=== PATIENT | female | born 1955 | race Two or more races ===

== ENCOUNTER 2024-10-04 11:22 | Day surgery (SDC) | payer MEDICARE, OTHER, SELFPAY ==
[2024-10-02 14:13] VITALS: BMI 25.3
[2024-10-04] MEDS: LACTATED RINGERS 1000ML 1,000 ML 50 ML IV (11:49)
[2024-10-04 11:53] VITALS: BP 121/80; PULSE 71; RESP 18; TEMP 36.4
[2024-10-04 13:17] VITALS: O2SAT 100
--- NOTE | 2024-10-04 13:17 | EXP.ANES.CKL ---
[facility] Disclaimer: The information contained in this section may have been updated after the patient was seen, as this information can be updated by other users. Medical History Hypothyroid Insomnia Allergies Hypertension Surgical History H/O lumpectomy H/O: hysterectomy H/O dilation and curettage History of tonsillectomy Tubal ligation status Family History Other Colon cancer Heart attack Hypertension Multiple myeloma Social History Smoking Status: Never smoker alcohol intake: never substance use type: denies use current occupational status: retired Travel in the last 8 weeks: None [facility] Anesthesia Checklist Patient Identification Patient Identification: Arm Band Structural Data Admitted From: Home Planned Operative Procedure/s: EGD/Colonoscopy Consent for Planned Operative Procedure(s) Verified: Yes Verified Documents: Surgical Consent and History and Physical NPO Status Verified Time NPO: 00:00 Additional verifications Anesthesia Reactions: No Airway Assessment Mallampati Score:: Class II C-Spine Mobility Assessed: Yes TMJ Mobility Assessed: Yes Dentition: Good Dentition Neurological Assessment Level of Consciousness: Awake, Alert and Appropriate Anesthesia Plan Anesthesia Risk discussed: Yes Anesthesia Plan: Verified ASA Class: II Anesthesia Type: MAC
--- NOTE | 2024-10-04 13:30 | P.HP_ITS ---
History of Present Illness *Admission Date: 10/04/24 *Reason for visit:: Dyspepsia/postprandial discomfort and surveillance/screening *History of present illness: Mrs. Prasad is a 69-year-old female who is here for diagnostic EGD secondary to dyspepsia and surveillance colonoscopy secondary to family history and personal history of colon polyp. The examination is deemed medically necessary for EGD and colonoscopy. The patient has been seen, interviewed and examined prior to the procedure by both myself and the anesthesia provider. [facility] Disclaimer: The information contained in this section may have been updated after the patient was seen, as this information can be updated by other users. Medical History (Updated 10/04/24 @ 13:31 by Tom Reyes II, MD) Hypothyroid Insomnia Allergies Hypertension Surgical History H/O lumpectomy H/O: hysterectomy H/O dilation and curettage History of tonsillectomy Tubal ligation status Family History Other Colon cancer Heart attack Hypertension Multiple myeloma Social History (Updated 10/04/24 @ 13:18 by Renato Thomas CRNA) Smoking Status: Never smoker alcohol intake: never substance use type: denies use current occupational status: retired Travel in the last 8 weeks: None Have you lived/traveled outside US in past 30 days?: No Contact w/someone who lives/traveled outside US past 30 days?: No Exposure to someone with infectious disease in past 14 days?: No Do you have a fever (greater than 100.4 F or 38 C)?: No Have you tested positive for COVID-19: No Exposed to someone with COVID-19 in past 14 days?: No Do you have a sore throat?: No Do you have a cough?: No Do you have any weakness?: No Are you experiencing any nausea/vomitting?: No Do you have any diarrhea?: No Are you experiencing any unusual bleeding?: No Do you have any muscle aches/pain?: No Do you have any abdominal pain?: No Are you experiencing loss of taste or smell?: No Review of Systems Review of Systems Review of systems (narrative): Negative *Cardiovascular Comments: Negative *Gastrointestinal Comments: Negative *Genitourinary Comments: Negative *Musculoskeletal Comments: Negative *Neurologic Comments: Negative Meds Home Medications and Allergies Home Medications ?Medication ?Instructions ?Recorded ?Confirmed ?Type cetirizine 5 mg tablet 5 mg PO DAILY 10/02/24 10/04/24 History levothyroxine 88 mcg tablet 83 mcg PO DAILY 10/02/24 10/04/24 History simvastatin 5 mg tablet 5 mg PO DAILY 10/02/24 10/04/24 History tamoxifen 10 mg tablet 10 mg PO DAILY 10/02/24 10/04/24 History telmisartan 40 mg tablet 40 mg PO DAILY 10/02/24 10/04/24 History trazodone 100 mg tablet 100 mg PO DAILY 10/02/24 10/04/24 History psyllium husk 0.4 gram capsule 0.4 g PO DAILY 10/04/24 10/04/24 History (Metamucil) New Prescriptions to Start Prescriptions: Allergies Allergy/AdvReac Type Severity Reaction Status Date / Time prednisone Allergy Hallucinati Verified 10/04/24 11:50 ng Exam Data for Last 24 hours Vital signs and Labs for Last 24 Hours: Temp Pulse Resp BP O2 Del Method O2 Flow Rate 97.6 F 71 18 121/80 Nasal Cannula 5 10/04/24 11:53 10/04/24 11:53 10/04/24 11:53 10/04/24 11:53 10/04/24 13:17 10/04/24 13:17 I & O for Last 24 hours: Intake & Output 10/01/24 10/02/24 10/03/24 10/04/24 23:59 23:59 23:59 23:59 Weight 157 lb *Routine HEENT Exam Head: Present normocephalic Eye: Present EOMI and PERRL ENT: Present mucous membranes moist *Routine Neck Exam Neck: Present supple *Routine Respiratory Exam Respiratory: Present CTA bilaterally *Routine Cardiovascular Exam Cardiovascular: Present RRR *Routine Abdominal Exam Abdominal: Present soft and normoactive bowel sounds; Absent tenderness *Routine Rectal Exam Rectal:: deferred *Routine Genitalia Exam Genitalia:: deferred *Routine Extremities Exam Extremities: Absent cyanosis, clubbing or edema *Routine Skin Exam Skin: Present warm; Absent rash *Routine Neurological Exam Neurological: Present alert and oriented X3 Assessment and Plan *Assessment and plan (1) Epigastric discomfort: Status: Acute Category: Medical Code(s): R10.13 - Epigastric pain (2) Dyspepsia: Status: Acute Category: Medical Code(s): R10.13 - Epigastric pain (3) Bloating: Status: Acute Category: Medical Code(s): R14.0 - Abdominal distension (gaseous) (4) Personal history of colon polyps, unspecified: Status: Acute Category: Medical Code(s): Z86.0100 - Personal history of colon polyps, unspecified (5) Family history of colon cancer in mother: Status: Acute Category: Medical Code(s): Z80.0 - Family history of malignant neoplasm of digestive organs Plan A/P: 1. Dyspepsia/bloating for upper endoscopy and family history of colon cancer and prior colon polyp for colonoscopy is the preprocedural diagnosis. The patient will be anesthetized/sedated using MAC sedation. The patient has been seen and examined. Cardiac and lung assessment prior to the examination is stable. Proceed with planned EGD and colonoscopy
--- NOTE | 2024-10-04 13:37 | HMH.PROCNOTE ---
[facility] Procedure Note Date: 10/04/24 Time: 13:37 Procedure Note:: Upper Endoscopy Procedure Report: Esophagogastroduodenoscopy with cold biopsies and TTS balloon dilation Endoscopost: Tom Reyes II, MD Referring Physician: STEVEN Becker Date of Procedure: October 04, 2024 Equipment: Olympus GIF 190 standard upper endoscope Sedation: MAC sedation Indications: Mrs. Prasad is a 69-year-old female who has been having some postprandial abdominal discomfort in the epigastrium 30 minutes after meals and then in the lower abdomen 2 hours after meals. She also was having bloating and gassiness. Much of this has improved. She does have some constipation that also has improved. She did try Linzess which resulted in marked diarrhea. She reports no belching, heartburn or dysphagia. She does get some early satiety without nausea. Procedure: Prior to the procedure, a history and physical exam was performed, and patient's medications and allergies were reviewed. The risks, benefits and alternatives of the sedation and procedure were discussed with the patient. All questions were answered and informed consent was obtained. The patient was brought to the procedure room. Patient identification and proposed procedure were verified by the physician and the nurse. The patient was placed in a left lateral decubitus position and the scope was passed under direct vision. Throughout the procedure, the patient's blood pressure, pulse, and oxygen saturations were monitored continuously. The upper GI endoscopy was accomplished without difficulty. The patient tolerated the procedure well. Findings: The scope was passed directly into the upper esophagus and advanced to the third portion of the duodenum. The post bulbar duodenum and duodenal bulb were normal with normal mucosa and conniventes. The scope was withdrawn through a normal duodenal bulb and pylorus into the stomach. There was some mild linear reactive gastropathy of the antrum. The body and fundus of the stomach were normal. Upon retroflexion there was a very small sliding 1 to 2 cm hiatal hernia. Biopsies were taken from the antrum. The scope was then withdrawn into the esophagus. There was a distal esophageal Schatzki's ring. This was gently dilated to 20 mm with shattering of the Schatzki's ring. There was no evidence of reflux esophagitis or Spring's. The remainder of the esophageal mucosa was normal. Impression: 1. Schatzki's ring with very small 1 to 2 cm sliding hiatal hernia status post dilation to 20 mm 2. Mild linear reactive gastropathy of antrum Plan: I will follow-up the biopsies. 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 Most of her symptoms of dyspepsia are/were related to and driven by lower intestinal gas pressure gradients/high gas pressure buildup resulting in backflow of bile and peptic fluid from the duodenum into the stomach (duodenal reflux). This gas production (carbon dioxide, hydrogen, methane, etc.) from the lower intestinal tract is the byproduct of colonic bacterial fermentation. This colonic fermentation occurs when there is more carbohydrate (dietary starches, sugars and high residue plant fiber) substrate that does not get digested (in the middle or small intestine) or occurs when there is colonic fecal buildup and colonic bacterial overgrowth. This indeed leads to bloating and the gas pressure buildup with gas pressure gradients that do drive backflow and dyspepsia.
--- NOTE | 2024-10-04 13:40 | HMH.PROCNOTE ---
[facility] Procedure Note Date: 10/04/24 Time: 13:53 Procedure Note:: Colonoscopy Procedure Report: Colonoscopy with cold snare polypectomy and monopolar ablation/coagulation of internal hemorrhoids Endoscopist: Tom Reyes II, MD Referring physician: STEVEN Becker Date of Procedure: October 04, 2024 Equipment: Olympus 190 variable stiffness pediatric colonoscope Sedation: MAC sedation Indication: Mrs. Prasad is a 69-year-old female who is here for follow-up surveillance colonoscopy. The patient did have a colonoscopy in August 2020 and had a single polyp removed. Her mother had colon cancer in her 60s. The patient reports no weight loss. She does have intermittent hemorrhoidal bleeding that can occur every 3 or 4 weeks with some hemorrhoid prolapse. Her constipation symptoms have resolved. Procedure: Prior to the procedure, a history and physical exam was performed, and patient's medications and allergies were reviewed. The risks, benefits and alternatives of the sedation and procedure were discussed with the patient. All questions were answered and informed consent was obtained. The patient was brought to the procedure room. Patient identification and proposed procedure were verified by the physician and the nurse. The patient was placed in a left lateral decubitus position and the scope was passed under direct vision. Throughout the procedure, the patient's blood pressure, pulse, and oxygen saturations were monitored continuously. The colonoscopy was accomplished without difficulty. The patient tolerated the procedure well. Findings: On digital rectal examination there was normal rectal tone. There were no external hemorrhoids. The colonoscope was introduced through the anal canal to the rectum and advanced to the cecum. The ileocecal valve and appendiceal orifice were identified. The scope was advanced a short distance into the ileum which appeared grossly normal. The scope was then withdrawn into the colon. There were 2 diminutive 3 to 4 mm colon polyps (transverse x 1 (4 mm) and sigmoid x 1 (3 mm)). These were both removed via cold snare polypectomy. The remaining cecum, ascending and transverse colon and mucosa were grossly normal. There were scattered diverticuli throughout the descending and sigmoid colon (LEFT colon). The rectum itself was normal. Upon retroflexion within the rectum there were grade 2?3 internal hemorrhoids with some prolapse. The venous columns of hemorrhoids were ablated using monopolar ablation/coagulation to destruction. The preparation was excellent throughout with [place] Preparation Score of 9. The cecal time was 12 minutes. Impression: 1. Diminutive colonic polyps x 2 2. Left-sided diverticulosis 3. Grade 2-3 internal hemorrhoids status post monopolar ablation/coagulation Plan: I will follow-up the polyp histology and recommend repeat surveillance colonoscopy again in 5 to 10 years based upon the pathology. I would encourage a fiber bowel regimen on a long-term daily maintenance basis.
[2024-10-04 13:57] VITALS: BP 109/68; PULSE 60; RESP 16; TEMP 36.1; O2SAT 95
[2024-10-04 14:07] VITALS: BP 97/61; PULSE 56; RESP 16; O2SAT 95
[2024-10-04 14:17] VITALS: BP 133/69; PULSE 65; RESP 16; O2SAT 97
[2024-10-04 14:27] VITALS: BP 119/69; PULSE 66; RESP 16; O2SAT 98
== END 2024-10-04 14:29 | disposition home or self-care (01) ==
PROVIDERS: PCP Nurse Practitioner Family; Visit Provider Internal Medicine Gastroenterology
PROC: 0DJ08ZZ Inspection of Upper Intestinal Tract, Via Natural or Artificial Opening Endoscopic (ICD-10-PCS; CPT 45378; principal; 2024-10-04 13:00)
DX: R10.13 Epigastric pain (principal); R14.0 Abdominal distension (gaseous); Z86.0100 Personal history of colon polyps, unspecified; Z80.0 Family history of malignant neoplasm of digestive organs; Z12.11 Encounter for screening for malignant neoplasm of colon; K31.9 Disease of stomach and duodenum, unspecified; K44.9 Diaphragmatic hernia without obstruction or gangrene; K22.2 Esophageal obstruction; K63.5 Polyp of colon; K57.30 Diverticulosis of large intestine without perforation or abscess without bleeding; K64.8 Other hemorrhoids
CPT/HCPCS: 43239; 43249; 45385; 45388; C1726; J7120

== ENCOUNTER 2025-09-04 08:09 | Outpatient (CLI) | payer MEDICARE, OTHER, SELFPAY ==
--- OUTSIDE RECORDS SUMMARY | 2025-07-11 10:30 | XMS_ITS | Encounter Summary ---
Author Organization [facility] ystem Address [address] [place] [address] Care Team Providers Care Advertising Agent Name Role Phone Hamm, Tomeka LARRY Primary Care Provider [phone] Reason for Visit * Reason Comments Follow-up Annual - 4 years out -Right Breast Cancer Encounter Details Date Type Department Care Team (Late st Contact Info) Description 07/11/2025 10:30 AM EST Office Visit [facility] GENERAL SURGERY [address] [facility] [address] [place] [id number] Zack Kong MD [address] [facility] [address] [place] [address] Ductal carcinoma in situ (DCIS) of right breast (Primary Dx) Social History Tobacco Use Types Packs/Day Years Used Date Smoking Tobacco: Never Smokeless Tobacco: Never Alcohol Use Standard Drinks/Week Comments Not Currently 0 (1 standard drink = 0.6 oz pur e alcohol) PHQ-2 Answer Date Recorded Retired PHQ-9: Brief Depression Severity Measure Score 0 11/12/2022 PHQ-2 Answer Date Recorded Patient Health Questionnaire-2 Score 0 11/20/2024 Comments No Sex and Gender Information Value Date Recorded Sex Assigned at Female 11/19/2024 1:41 PM EDT Legal Sex Female 10:29 AM EDT Gender Identity Not on file Sexual Orientation Not on file documented as of this encounter Last Filed Vital Signs Vital Sign Reading Time Taken Comments Blood Pressure 122/80 07/11/2025 11:10 AM EST Pulse 73 07/11/2025 11:10 AM EST Temperature - - Respiratory Rate - - Oxygen Saturation 96% 07/11/2025 11:10 AM EST Inhaled Oxygen Concentration - - Weight 73.5 kg (162 lb) 07/11/2025 11:10 AM EST Height 160 cm (5' 3 ) 07/11/2025 11:10 AM EST Body Mass Index 28.7 07/11/2025 11:10 AM EST documented in this encounter Progress Notes * Zack Kong MD - 07/11/2025 10:30 AM ESTAssociated Problem(s): Ductal carcinoma in situ (DCIS) of right breast Cancer Staging Stage 0 (pTis (DCIS), pN0, cM0, G3, ER+, PA+, HER2: Not Assessed) Status post right lumpectomy on 03/23/2021 No residual DCIS Completed radiation in 04/[address] Quiros Recent screening mammogram with BI-RADS Category 1 Continue with routine mammograms Follow-up with Dr. Quiros Breast MRI in 1 year * Zack Kong MD - 07/11/2025 10:30 AM EST Name: Charmaine Prasad Date: 07/11/25 Referring provider: No ref. provider found Subjective: Charmaine Prasad is a 70 y.o. female referred for evaluation of diagnosed carcinoma of the right breast. Patient presented with a focus of calcification at 9 o'clock position with grade 3 DCIS., ER and PRpositive Status post right lumpectomy on 03/23/2021 Final pathology showed no residual DCIS Negative genetic test Completed radiation in 04/[address] Quiros Bilateral screening mammogram on 06/25/2025 with BI-RADS Category 1 The following portions of the patient's history were reviewed and updated as appropriate: allergies, current medications, past family history, past medical history, past social history, past surgicalhistory, and problem list. Review of Systems Pertinent items are noted in HPI. Objective: Vitals: 07/11/25 1110 BP: 122/80 Pulse: 73 SpO2: 96% Body mass index is 28.7 kg/m??. Physical Exam Physical Exam Lungs: clear to auscultation bilaterally Heart: regular rate and rhythm, S1, S2 normal, no murmur, click, rub or gallop Breasts: normal appearance, no masses Right lumpectomy incision has healed well No bilateral adenopathy Assessment/Plan: Assessment & Plan Ductal carcinoma in situ (DCIS) of right breast Cancer Staging Stage 0 (pTis (DCIS), pN0, cM0, G3, ER+, PA+, HER2: Not Assessed) Status post right lumpectomy on 03/23/2021 No residual DCIS Completed radiation in 04/[address] Quiros Recent screening mammogram with BI-RADS Category 1 Continue with routine mammograms Follow-up with Dr. Quiros Breast MRI in 1 year Return in about 1 year (around 07/11/2026). Zack Kong MD documented in this encounter Plan of Treatment Upcoming Encounters Date Type Department Care Team (Late st Contact Info) Description 11/20/2025 11:00 AM EDT Office Visit [facility] & [facility]Y [address] [facility] [address] [place] [phone] Urszula Quiros MD [address] [facility] [address] [place] [address] 07/10/2026 10:30 AM EST Office Visit [facility]ERY [address] [facility] [address] [place] [phone] Zack Kong MD [address] [facility] [address] [place] [address] documented as of this encounter Visit Diagnoses Diagnosis Ductal carcinoma in situ (DCIS) of right breast- Primary documented in this encounter Care Teams Advertising Agent Relationship Specialty Start Date End Date Tomeka Hamm APRN NPI: [id number] [place] [address] PCP - General Nurse Practitioner 06/05/24 documented as of this encounter
--- OUTSIDE RECORDS SUMMARY | 2025-09-04 08:12 | XMS_ITS | Clinical Summary ---
Author Organization [facility] yste Address [address] [place] [address] Care Team Providers Care Bath Design Sales Consultant Name Role Phone Tomeka Hamm APRN Primary Care Provider [phone] Allergies No known active allergies Medications Synthroid 75 MCG tablet 1 tablet Daily. 02/17/2021 Active rosuvastatin (CRESTOR) 5 MG tablet 1 tablet Daily. 02/17/2021 Active telmisartan (MICARDIS) 40 MG tablet 1 tablet Daily. 02/17/2021 Active hydrOXYzine (ATARAX) 25 MG tablet every night at bedtime. 11/13/2021 Active traZODone (DESYREL) 100 MG tablet 1 tablet Every Night. 10/29/2022 Active levothyroxine (SYNTHROID, LEVOTHROID) 88 MCG tablet Take 1 tablet by mouth Every Morning. 10/05/2024 Active tamoxifen (NOLVADEX) 20 MG chemo tablet Take 1 tablet by mouth Daily. 90 tablet 3 11/20/2024 Active Hospital, Clinic, or Other Facility Administered Medication Ordered Dose Route Frequency Start Date End Date Status lidocaine (XYLOCAINE) 1 % injection 5 mL 5 mL INFILTRATION Once 03/23/2021 Acti ve Active Problems Problem Noted Date Diagnosed Date Ductal carcinoma in situ (DCIS) of right breast 04/01/2021 Cancer Staging:Pathologic:Stage 0(pTis (DCIS), pN0, cM0, G3, ER+, [place]+, HER2: Not Assessed) - Signed by Urszula Quiros MD on 04/01/2021 Assessment & Plan (07/11/2025 11:25 AM EST): Cancer Staging Stage 0 (pTis (DCIS), pN0, cM0, G3, ER+, [place]+, HER2: Not Assessed) Status post right lumpectomy on 03/23/2021 No residual DCIS Completed radiation in 04/[address] Quiros Recent screening mammogram with BI-RADS Category 1 Continue with routine mammograms Follow-up with Dr. Quiros Breast MRI in 1 year Encounters Date Type Department Care Team Description 07/11/2025 10:30 AM EST Office Visit [facility] GENERAL SURGERY [address] [facility] [address] [place] [phone] Zack Kong MD Ductal carcinoma in situ (DCIS) of right breast (Primary Dx) 07/11/2025 Travel 06/24/2025 1:29 PM EDT - 06/24/2025 11:59 PM EDT Hospital Encounter [facility] [address] [place] [phone] Jojo Araya, JOB HONER Encounter for screening mammogram for malignant neoplasm of breast; Ductal carcinoma in situ (DCIS) of right breast Discharge Disposition: Home or Self Care 06/24/2025 Travel from Last 3 Months Immunizations Immunization Administration Dates Next Due COVID-19 (MODERNA) 1st,2nd,3rd Dose Monovalent 0 11/27/2020,10/30/2020 FLUAD TRI 65YR+ 06/10/2020 Flu Vaccine Split Quad 06/23/2017 Fluzone >6mos 05/30/2019,06/24/2016 Fluzone (or Fluarix & Flulaval for VFC) >6mos Family History Medical History Relation Name Comments Heart disease Father Carlin Ojeda Hypertension Father Carlin Ojeda Breast cancer Maternal Aunt 1 DX AGE 20'S -70'S Breast cancer Maternal Aunt 2 DX AGE 20'S -70'S Breast cancer Maternal Aunt 3 DX AGE 20'S - 70'S Heart attack Mother La Ojeda Hypertension Mother [place] O[place]eda BRCA 1/2 Neg Hx Ovarian cancer Neg Hx Relation Name Status Comments Father Carlin Ojeda Maternal Aunt 1 Maternal Aunt 2 Maternal Aunt 3 Maternal Aunt 4 Mother La Ojeda Social History Tobacco Use Types Packs/Day Years Used Date Smoking Tobacco: Never Smokeless Tobacco: Never Tobacco Cessation:Counseling Given: Not Answered Alcohol Use Standard Drinks/Week Comments Not Currently [...] on file Sexual Orientation Not on file Last Filed Vital Signs Vital Sign Reading Time Taken Comments Blood Pressure 122/80 07/11/2025 11:10 AM EST Pulse 73 07/11/2025 11:10 AM EST Temperature 36.4 C (97.6 F) 11/20/2024 10:55 AM EDT Respiratory Rate 16 11/20/2024 10:55 AM EDT Oxygen Saturation 96% 07/11/2025 11:10 AM EST Inhaled Oxygen Concentration - - Weight 73.5 kg (162 lb) 07/11/2025 11:10 AM EST Height 160 cm (5' 3 ) 07/11/2025 11:10 AM EST Body Mass Index 28.7 07/11/2025 11:10 AM EST Plan of Treatment Upcoming Encounters Date Type Department Care Team (Late st Contact Info) Description 11/20/2025 11:00 AM EDT Office Visit [facility] HEMATOLOGY & ONCOLOGY [address] [facility] [address] [place] [phone] Urszula Quiros MD [address] [facility] [address] [place] [phone] 07/10/2026 10:30 AM EST Office Visit [facility] GENERAL SURGERY [address] [facility] [address] [place] [phone] Zack Kong MD [address] [facility] [address] [place] [phone] Health Maintenance Due Date Last Done Comments COLOGUARD 2002 COLON CANCER SCREENING 5 YEA R SIGMOIDOSCOPY 2002 COLONOSCOPY 2002 COLORECTAL CANCER SCREENING 2002 CT COLONOGRAPHY 2002 FECAL OCCULT BLOOD TEST 2002 FIT Testing (1 year) 2002 ANNUAL WELLNESS VISIT 08/17/2020 HEPATITIS C SCREENING 08/17/2020 COVID-19 Vaccine (3 - Modern a risk series) 12/25/2020 11/27/2020, 10/30/2020 ZOSTER VACCINE (2 of 2) 07/11/2022 05/16/2022 LIPID PANEL 06/22/2024 06/22/2023, 12/04, 12/20/2022, Additional history exists DXA SCAN 12/20/2024 12/20/2022, 12/20/2022 INFLUENZA VACCINE 04/05/2025 06/29/2024, , 06/09/2021, Additional history exists Pneumococcal Vaccine 50+ (2 of 2 - PCV) 06/29/2025 06/29/2024 MAMMOGRAM 06/25/2027 06/25/2025, 06/06, 06/20/2024, Additional history exists TDAP/TD VACCINES (2 - Td or Tdap) 06/22/2033 023 Procedures Procedure Name Priority Date/Time Associated Diagnosis Comments MAMMO SCREENING DIGITAL TOMOSYNTHESIS BILATERAL W CAD Routine 06/24/2025 1:54 PM EDT Encounter for screening mammogram for malignant neoplasm of breast Ductal carcinoma in situ (DCIS) of right breast AMBRY GENETIC ASSESSMENT Routine 06/23/2025 1:29 PM EDT SCANNED - DEXA 12/20/2022 from Last 3 Months or Most Recently Relevant to Health Maintenance Results * Mammo Screening Digital Tomosynthesis Bilateral With CAD (06/24/2025 1:54 PM EDT) Anatomical Region Laterality Modality Breast N/A Mammography 06/25/2025 5:42 PM EDT Impressions 06/25/2025 5:44 PM EDT No findings suspicious for malignancy. ACR BI-RADS CATEGORY: 1, NEGATIVE RECOMMENDATION: Yearly mammogram, yearly clinical breast exam, and encourage self breast awareness. CAD was used. The standard false negative rate of mammography is between 10% and 25%. Complex patterns or increased breast density will markedly elevate the false negative rate of mammography. A letter, in lay terminology, with the results of this exam will be mailed to the patient. If there is a palpable area of concern, biopsy should be considered regardless of imaging findings. 06/25/2025 5:44 PM by Marianne Tomas MD on Narrative 06/25/2025 5:44 PM EDT ROUTINE DIGITAL SCREENING MAMMOGRAM WITH TOMOSYNTHESIS HISTORY: Routine screening. IMAGE COMPARISON: Extending to 2020. TECHNIQUE: Low dose full field digital breast tomosynthesis imaging was performed with 2D and 3D acquisitions consisting of bilateral CC and MLO views. FINDINGS: There are scattered areas of fibroglandular density. The fibroglandular pattern appears stable. There is no mass, worrisome microcalcifications, or architectural distortion to suggest development of malignancy. us Jojo Araya APRN IMG MAMMOGRAPHY ORDERABLES Final Result * [employer] GENETIC RISK ASSESSMENT QUESTIONNAIRE - , (06/23/2025 1:29 PM EDT) NCCN NCCN not met [facility] Comment:High Risk Cancer Ris k Assessment 06/23/2025 1:29 PM EDT us Jojo Araya APRN GENETIC TESTING Final Resu lt [email or web address]
[address] [place] [address], * SCANNED - DEXA (12/20/2022) Anatomical Region Laterality Modality Other us Jojo Araya APRN CHART REVIEW TABS Final Result from Last 3 Months or Most Recently Relevant to Health Maintenance Insurance MEDICARE A & B [employer] Member Subscriber Plan / Payer ( fective 2022-Present) Name:Charmaine Prasad Relation to Subscriber:Self Name:Charmaine Prasad Payer ID:[id number] (NA) Type:Not on file Address: [address] [place] [phone] Care Teams Bath Design Sales Consultant Relationship Specialty Start Date End Date Tomeka Hamm APRN [address] [place] [address] PCP - General Nurse Practitioner 06/05/24
--- OUTSIDE RECORDS SUMMARY | 2025-09-04 08:12 | XMS_ITS | Encounter Summary ---
Author Organization [facility] yste Address [address] [place] [address] Care Team Providers Care Thread Singer Name Role Phone Tmoeka Hamm LARRY Primary Care Provider [phone] Encounter Details Date Type Department Care Team (Latest Contact Info) Description 07/11/2025 Travel Social History Tobacco Use Types Packs/Day Years [...] on file documented as of this encounter Plan of Treatment Upcoming Encounters Date Type Department Care Team (Late st Contact Info) Description 11/20/2025 11:00 AM EDT Office Visit [facility] HEMATOLOGY & ONCOLOGY [address] [facility] [address] [place] [phone] Urszula Quiros MD [address] [facility] [address] [place] [address] 07/10/2026 10:30 AM EST Office Visit [facility] GENERAL SURGERY [address] [facility] [address] [place] [phone] Zack Kong MD [address] [facility] [address] [place] [address] documented as of this encounter Visit Diagnoses Not on filedocumented in this encounter Care Teams Thread Singer Relationship Specialty Start Date End Date Tomeka Hamm APRN [address] [place] [phone] PCP - General Nurse Practitioner 06/05/24 documented as of this encounter
--- OUTSIDE RECORDS SUMMARY | 2025-09-04 08:12 | XMS_ITS | Encounter Summary ---
Author Organization [facility] yste Address [address] [place] [address] Care Team Providers Care Structural Steel Fitter Name Role Phone Tomeka Hamm LARRY Primary Care Provider [phone] Encounter Details Date Type Department Care Team (Late st Contact Info) Description 03/26/2021 Telephone [facility] [address] [place] [phone] Evy Martinez RegSched Rep Social History Tobacco Use Types Packs/Day Years Used Date Smoking Tobacco: Never Assessed Comments No Sex and Gender Information Value Date Recorded Sex Assigned at Female 11/19/2024 1:41 PM EDT Legal Sex Female 10:29 AM EDT Gender Identity Not on file Sexual Orientation Not on file documented as of this encounter Plan of Treatment Upcoming Encounters Date Type Department Care Team (Late st Contact Info) Description 11/20/2025 11:00 AM EDT Office Visit [facility] HEMATOLOGY & ONCOLOGY [address] [facility] [address] [place] [phone] Urszula Quiros MD [address] [facility] [address] [place] [phone] 07/10/2026 10:30 AM EST Office Visit [facility] GENERAL SURGERY [address] [facility] [address] [place] [address] Zack Kong MD [address] [facility] [address] [place], [place] [phone] documented as of this encounter Visit Diagnoses Not on filedocumented in this encounter Care Teams Structural Steel Fitter Relationship Specialty Start Date End Date Tomeka Hamm APRN [address] [place] [id number] PCP - General Nurse Practitioner 06/05/24 documented as of this encounter
--- OUTSIDE RECORDS SUMMARY | 2025-09-04 08:12 | XMS_ITS | Continuity of Care Document ---
Author Organization [id number] [address] [facility] Address [address] [place] [address] Assessment Encounter Date Assessment Date Assessment LastModified by Organization Details LastModified Time 08/14/2025 08/14/2025 Charmaine Prasad presented with 15-month history of epigastric and lower abdominal pain, irregular bowel movements, and 4-week history of bilateral arm tingling. Her medical history included IBS with constipation, functional dyspepsia, Schatzki's ring with small hiatal hernia, diverticulitis, and cervical spine issues. Previous EGD and colonoscopy revealed reactive gastritis and benign polyps. Treatment included pantoprazole 40mg daily, CT abdomen with contrast, Flexeril 5mg at bedtime, and Tylenol arthritis for pain. Follow-up scheduled in [address] completion. Not available 08/14/2025 16:29:15 Plan of Treatment Reminders Order Date Submit Date Provider Last Modified By Organization Details Last Modified Time Details Appointments FOLLOW UP 15 2025 10:30A James Hamm APRN Not available Not available Not available *ANNUAL EXAM 2025 11:00A James Hamm APRN Not available Not available Not available Lab renal function panel, serum 2024 025 [place] [facility], [facility], [place], [address], 09/03/2025 04:13:29 Referral None recorded. Procedures None recorded. Surgeries None recorded. Imaging CT, abdomen, w/wo contrast [address] (Scheduling), [address], [place], [address], 08/21/2025 09:14:40 Medication Orders cyclobenz aprine 5 mg tablet 2024 025 [facility], [address] [place] [address], [address], 08/14/2025 14:54:52 pantopraz ole 40 mg tablet,de layed release 2024 025 [facility], [address] [place] [address], [address], 08/14/2025 14:39:46 Patient TargetsNo targets recorded. Patient InstructionsNo instructions recorded. Reason for Referral None Reported. Problems Name Problem SNOMED Code Status Onset Date Resolution Date Notes Provider Name and Address Organization Details Recorded Time Lumpectom y of breast Completed 06/22/2023 ABIMAEL CURIEL [address], [address], [employer] 3 10:10:04 Hypertens aubree disorder 15182059 Active 2022 ABIMAEL CURIEL [address], [address], [employer] 3 10:09:30 Mixed hyperlipi demia 156703245 Active 2022 ABIMAEL CURIEL [address], [address], [employer] 3 10:09:44 Hypothyro idism 67105354 Active 2022 ABIMAEL CURIEL [address], [address], [employer] 10:09:38 Insomnia 322873596 Active 2022 ABIMAEL CURIEL [address], [address], [employer] 3 10:09:40 Muscle spasm of cervical muscle of neck 948812086304 Active 2024 Tomeka Hamm APRN [address] [place] [address], [address] [place] [address] 8, [employer] 14:20:25 Body mass index 25-29 - overweigh t 403851835 Active 2024 Tomeka Hamm APRN [address] [place] [address], [address] [place] [address] 8, [employer] 15:47:27 Lower esophagea l ring 907440386 Active 2024 Tomeka Hamm APRN [address] [place] [address], [address] [place] [address] 8, [employer] 5 13:57:02 Irritable bowel syndrome character ized by constipat ion 561130850 Active 2024 Tomeka Hamm APRN [address] [place] [address], [address] [place] [address] 8, [employer] 5 13:57:12 Nonulcer dyspepsia 7111520 Active 2024 Tomeka Hamm APRN [address] [place] [address], [address] [place] [address] 8, [employer] 13:57:28 Hiatal hernia 74482518 Active 2024 Tomeka Hamm APRN [address] [place] [address], [address] [place] [address] 8, [employer] 13:59:17 Problem Notes None recorded. Procedures Surgical History Date Name Laterality Status Provider Name and Address Organization Details Recorded Time 06/20/20 Most Recent Mammogram completed Vandana Frias [employer] 10/01/2024 10:38:14 Breast Biopsy completed [employer] 06/22/2023 09:17:14 Hysterectomy completed [employer] 06/22/2023 09:12:23 Tonsillectomy completed [employer] 06/22/2023 09:12:23 Tubal Ligation completed ERNESTO [employer]. 06/22/2023 09:12:23 Dilation and Curettage completed ERNESTO [employer]. 06/22/2023 09:12:23 lumpectomy of right breast completed ERNESTO [employer]. 06/22/2023 09:17:26 lithotripsy completed ERNESTO [employer]. 06/22/2023 09:17:45 Imaging Results None recorded. Procedure Notes None recorded. Medical Equipment None Reported. Allergies No known drug allergies Medications Name Sig Start Date Stop Date Status Note LastModified by Organization Details LastModified Time amoxicillin 500 mg capsule TAKE 1 CAPSULE BY MOUTH THREE TIMES DAILY 06/22 completed Not Available Not Available Not Available Augmentin 875 mg-125 mg tablet Take 1 tablet every 12 hours by oral route with meal(s) for 10 days. 09/21 completed Not Available Not Available Not Available ketoconazol e 2 % shampoo WASH SCALP 2 TO 3 TIMES EVERY WEEK. LET SIT 5 MINUTES BEFORE RINSING THEN FOLLOW WITH REGULAR SHAMPOO 05/22 completed Not Available Not Available Not Available clobetasol 0.05 % topical cream APPLY EXTERNALL Y TO THE AFFECTED AREA 2 TO 3 TIMES PER WEEK 05/22 completed Not Available Not Available Not Available Zyrtec 10 mg tablet Take 1 tablet every day by oral route. 05/22 completed Not Available Not Available Not Available levothyroxi ne 88 mcg tablet TAKE ONE TABLET BY MOUTH EVERY MORNING active Not Available Not Available No t Available ceftriaxone 1 gram solution for injection Take 1 g by injection route. 05/22 completed Not Available Not Available Not Available magnesium oxide 400 mg (241.3 mg magnesium) tablet TAKE 1 TABLET BY MOUTH EVERY DAY active Not Available Not Available No t Available trazodone 100 mg tablet TAKE 1 TABLET AT BEDTIME 2024 active Not Available Not Available Not Avai lable doxycycline monohydrate 100 mg capsule TAKE ONE CAPSULE BY MOUTH TWICE DAILY WITH A MEAL FOR 7 DAYS FOR ear infection 09/28 completed Not Available Not Available Not Available triamcinolo ne acetonide 40 mg/mL suspension for injection Take 1 mL by injection route. 05/22 completed Not Available Not Available Not Available pantoprazol e 40 mg tablet,nga yed release TAKE 1 TABLET BY MOUTH EVERY DAY active Not Available Not Available No t Available telmisartan 40 mg tablet TAKE 1 TABLET BY MOUTH EVERY DAY as directed active Not Available Not Available No t Available Synthroid 75 mcg tablet Take 1 tablet every day by oral route. 07/09 completed Not Available Not Available Not Available hydroxyzine HCl 25 mg tablet Take 2 tablets every day by oral route at bedtime. 05/22 completed Not Available Not Available Not Available fluocinonid e 0.05 % topical solution WHEN FLARED APPLY TO SCALP AT BEDTIME FOR UP TO 2 WEEKS. STOP FOR 1 WEEK THEN REPEAT NEEDED FOR FLARES 05/22 completed Not Available Not Available Not Available fluticasone propionate 50 mcg/actuati on nasal spray,suspe nsion SPRAY ONCE in EACH NOSTRIL DAILY 05/22 completed Not Available Not Available Not Available tamoxifen 20 mg tablet TAKE 1 TABLET DAILY active Not Available Not Available No t Available cyclobenzap rine 5 mg tablet TAKE 1 TABLET BY MOUTH NEEDED AT BEDTIME FOR muscle pain 2024 active Not Available Not Available Not Avai lable rosuvastati n 5 mg tablet TAKE 1 TABLET BY MOUTH EVERY DAY as directed active Not Available Not Available No t Available sodium,pota ssium,mag sulfates 17.5 gram-3.13 gram-1.6 gram oral soln 05/22 completed Not Available Not Available Not Available Linzess 145 mcg capsule TAKE ONE CAPSULE BY MOUTH EVERY MORNING FOR CONSTIPAT ION 05/22 completed Not Available Not Available Not Available Vitals Date Recorded Body height Body mass index (BMI) Body weight Body temperature Heart rate Oxygen saturation Systolic And Diastolic Provider Name and Address Organization Details Last Updated DateTime 160.02 cm 29.1 kg/m2 60408.8 7 g 98.5 [degF] 98 /min 95 % 115/72 mm[Hg] [facility]UL[facility] [place] [employer] [address] 13:52:51 Social History Question Answer Notes LastModified by Organizat ion Details LastModified Time Tobacco Smoking Status Never Smoker ERNESTO mireles, [facility] [employer] 06/22/2023 09:16:35 Do You Have An Advance Directive? No [email or web address] Information not available 06/22/2023 Is Your Home Air Conditioned? Yes Information not available 06/22/2023 Do You Wear A Helmet When Biking? No Information not available 06/22/2023 Are You Blind Or Do You Have Difficulty Seeing? No [email or web address] Information not available 06/22/2023 What Is Your Level Of Caffeine Consumption? Moderate Information not available 06/22/2023 Have You Been To An Area Known To Be High Risk For COVID-19? No [email or web address] Information not available 06/22/2023 Are You Deaf Or Do You Have Serious Difficulty Hearing? No Information not available 06/22/2023 What Type Of Diet Are You Following? REGULAR [email or web address] Information not available 06/22/2023 How Many Days Of Moderate To Strenuous Exercise, Like A Brisk Walk, Did You Do In The Last 7 Days? 0 [email or web address] Information not available 06/22/2023 Have There Been Any Changes To Your Family Or Social Situation? Yes [email or web address] Information no t available 06/22/2023 Are There Any Guns Present In Your Home? No [email or web address] Information not available 06/22/2023 Which Of Your Hands Is Dominant? Right [email or web address] Information not available 06/22/2023 Do You Have A Medical Power Of Tapper Hand? Yes [email or web address] Information not available 06/22/2023 What Was The Date Of Your Most Recent Tobacco Screening? 08/14/2025 [email or web address] Information not available 08/14/2025 Do You Have Any Pets? No [email or web address] Information not available 06/22/2023 What Is Your Relationship Status? [email or web address] Information not available 06/22/2023 Have You Repeated Any Grades? No [email or web address] Information not available 06/22/2023 Do You Use Your Seat Belt Or Car Seat Routinely? Yes [email or web address] Information not available 06/22/2023 Are You Sexually Active? Yes [email or web address] Information not available 06/22/2023 Do You Have Any Siblings? 5 [email or web address] Information not available 06/22/2023 Do You Have Smoke And Carbon Monoxide Detectors In Your Home? Yes [email or web address] Information not available 06/22/2023 Are You Passively Exposed To Smoke? No [email or web address] Information no t available 06/22/2023 Are There Any Smokers In Your House? No [email or web address] Information not available 06/22/2023 What Types Of Sporting Activities Do You Participate In? Walking [email or web address] Information not available 06/22/2023 Do You Use Sunscreen Routinely? No [email or web address] Information not available 06/22/2023 Has Tobacco Cessation Counseling Been Provided? No [email or web address] Information not available 06/22/2023 Have You Recently Traveled Abroad? No Information not available 06/22/2023 Do You Have Difficulty Walking Or Climbing Stairs? No [email or web address] Information not available 06/22/2023 Sex: Female Functional Status Question Answer Note LastModified by Organizat ion Details LastModified Time Do you use any illicit or recreational drugs? No [email or web address] Information not available 06/22/2023 Do you or have you ever used any other forms of tobacco or nicotine? No [email or web address] Information not available 06/22/2023 What is your level of alcohol consumption? None [email or web address] Information not available 06/22/2023 Are you currently employed? No [email or web address] Information not available 06/22/2023 Do you have transportation difficulties? No [email or web address] Information not available 06/22/2023 Do you have difficulty doing errands alone? No [email or web address] Information not available 06/22/2023 Are you able to care for yourself independently? Yes [email or web address] Information not available 06/22/2023 Do you have difficulty dressing, bathing, grooming, or toileting? No [email or web address] Information not available 06/22/2023 What is your exercise level? Occasional [email or web address] Information not available 06/22/2023 Mental Status Question Answer Note LastModified by Organization D etails LastModified Time Do you have difficulty concentrating, remembering or making decisions? No [email or web address] Information no t available 06/22/2023 Are you or have you been involved with bullying? No li Information not available 06/22/2023 Family History Relationship Description Onset Age of this Age Resolved Age Notes LastModified by Organization Details LastModified Time Mother Hypercholest manoj [email or web address] Not available 09:12:21 Mother Malignant neoplasm of colon [email or web address] Not available 09:12:21 Mother Hypertensive disorder [email or web address] Not available 09:12:21 Mother Heart disease [email or web address] Not available 09:12:21 Sister Hypercholest erwaltia [email or web address] Not available 09:12:21 Sister Hypertensive disorder [email or web address] Not available 09:12:21 Father Hypercholest erwaltia [email or web address] Not available 09:12:21 Father Hypertensive disorder [email or web address] Not available 09:12:21 Father Kidney disease [email or web address] Not available 09:12:21 Medical History Condition Response Bladder or Kidney Problems Y Breast Cancer Y High Cholesterol Y Hospitalizations N Emergency room visit since last appointm ent. N Headaches Y Thyroid Problems Y Hypertension Y Gynecological History Statement/Question Response Menses Monthly N HPV Vaccine Y Date of Last Pap Smear Most Recent Mammogram 06/20/2024 Age at First Child 27 Obstetrics History GPAL:G 0 P 0 0 0 0 Immunizations Vaccine Type Date Status Note Provider Nam e and Address Organization Details Recorded Time Tdap 3 completed ERNESTO mireles, [employer] 06/22/2023 10:13:15 Influenza, high-dose, quadrivalent, PF 3 completed ERNESTO mireles, [employer] 06/22/2023 10:13:16 Influenza, high-dose, trivalent, PF 4 completed Tomeka Hamm APRN [address] [place], [address], [employer] 07/01/2024 15:57:40 pneumococcal polysaccharide PPV23 4 completed Tomeka Hamm APRN [address] [place], [address], [employer] 07/01/2024 15:57:40 Influenza, split virus, quadrivalent, preservative 1 completed ERNESTO FLORES null, [employer] 12/21/2023 12:56:03 zoster recombinant 2 completed ERNESTO FLORES null, [employer] 12/21/2023 12:56:03 COVID-19, mRNA, LNP-S, PF, 100 mcg/0.5mL dose or 50 mcg/0.25mL dose 1 completed ERNESTO FLORES null, [employer] 12/21/2023 12:56:03 COVID-19, mRNA, LNP-S, PF, 100 mcg/0.5mL dose or 50 mcg/0.25mL dose 1 completed ERNESTO FLORES null, [employer] 12/21/2023 12:56:03 Influenza, split virus, trivalent, PF 9 completed ERNESTO FLORES null, [employer] 12/21/2023 12:56:03 Influenza, split virus, trivalent, PF 6 completed ERNESTO FLORES null, [employer] 12/21/2023 12:56:03 Influenza, split virus, quadrivalent, PF 0 completed ERNESTO FLORES null, [employer] 12/21/2023 12:56:03 Influenza, split virus, quadrivalent, PF 7 completed ERNESTO FLORES null, [employer] 12/21/2023 12:56:03 Influenza, high-dose, trivalent, PF 5 completed Tomeka Hamm APRN [address] [place], [address], [employer] 08/14/2025 14:33:02 Past Encounters Encounter ID Performer Location Encounter Start Date Encounter Closed Date Diagnosis/Indication Diagnosis SNOMED-CT Code Diagnosis ICD10 Code Diagnosis IMO Codes Diagnosis Note [id number] Tomeka Hamm MECHANIC [address] [address] 08/14/2025 13:35:48 08/14/2025 14:41:39 Influenza vaccination given 2231114414 9109 Z23 06254719 Lower esophageal ring 23 5376084 K22.2 8229 Irritable bowel syndrome characterized by constipation 395740402 K58.1 382514 Nonulcer dyspepsia 34171 07 K30 027891 Hiatal hernia 87523768 K 44.9 9218 Chronic ab dominal pain 117656888 R10.9 G89.29 372613 Lumbar radiculopathy 128 523681 M54.16 865760 Health Concerns Section Related Observation LastModified by Organization Detai ls LastModified Time None Recorded Concern Status LastModified by Organization Details LastModified Time None Recorded Payers Encounter Date Sequence Insurance Name Policy Number Policy [place] Covered Member ID [place] Member ID Guarantor Name 08/14/2025 2 [employer] [id number] Charmaine Romero Osmar [id number] 2 Charmaine Prasad 08/14/2025 1 [place] Charmaine Osmar [id number] Alissonsharon Osmar Notes Date Note Type Note Provider Name and Address Organization Details Recorded Time 08/14/2025 text/html ROS as noted in the HPI Chief ComplaintStomach pain for approximately 15 months with epigastric and lower abdominal pain, irregular bowel movements, tingling sensation in arms and legs for 4 weeks, neck and lower back pain with right buttock pain radiating down legHistory of Present IllnessCharmaine Prasad presents with ongoing abdominal pain and bowel issues that have persisted for approximately 15 months. She reports epigastric pain that occurs intermittently, with episodes lasting days at a time where she can only tolerate small amounts of food like mashed potatoes in the evening. The pain is not consistently triggered by specific food groups, though she notes it occurred after eating raw carrots and celery about a month ago. During symptomatic periods, pretty much everything she eats bothers her. She denies that the pain is specifically triggered by greasy or fatty foods, acidic foods, gluten, lactose, or heavy starches.Her bowel movements have been variable - sometimes soft to the point where she has difficulty getting clean, and in the last 2-3 days she has gone multiple times per day. Other days it is hard for her to go, with several days sometimes passing between bowel movements. She takes Konsyl every other day because daily use caused loose stools. She has tried Linzess previously but it caused too many bowel movements. She has also tried probiotics, miralax, and Iberogast without lasting improvement. She reports increased regurgitation over the last month, which is new for her. She drinks minimal carbonated beverages (a small Sprite every 4-5 days) and has never been recommended antacids like Prilosec.Additionally, she reports a 4-week history of prickly, burning sensations on her arms (mostly the lateral surfaces) and occasionally around her ankles. There is no visible rash or skin discoloration. The sensation is bilateral and feels like she needs to rub the area rather than scratch it. She describes it as feeling like wearing wool. She has been more diligent about using lotion and drinking water (3 eighteen-ounce bottles daily) and even received an IV with vitamins once, which helped minimally.She also complains of neck pain and lower back pain with right buttock pain that radiates down the outside of her leg. The neck pain is chronic and she was previously told she has degenerative disc arthritis, cervical radiculopathy, and cervical stenosis. She notes the pain worsens with activities like lifting totes or cutting grass. She has not had a massage recently and finds that even when she does get massages, the relief only lasts about a week.Her daily eating pattern consists of pre-measured oatmeal with 3 strips of rodriguez, juice, and coffee in the morning, no lunch, and a regular or smaller evening meal without evening snacking. She denies having colon cancer, Crohn's disease, and states she has never tried going gluten-free despite having a sister and niece with gluten problems. Previous GI consult notes were reviewed with her today. She is frustrated that she has seen GI several times this year with no real sx improvement. Tomeka Hamm APRN [address] [place], [address], [facility] [employer] 08/14/2025 16:30:28 OBGyn Episode No OBEpisode recorded.
--- OUTSIDE RECORDS SUMMARY | 2025-09-04 08:12 | XMS_ITS | Clinical Summary ---
Author Organization [facility] Address [address] [place] [address] Care Team Providers Care Club Director Name Role Phone Rosemary Simon Primary Care Provider [phone] Allergies No known active allergies Medications cetirizine (ZyrTEC) 10 MG tablet Take 10 mg by mouth 1 (one) time each day. Active coenzyme Q-10 100 MG capsule Take 100 mg by mouth 1 (one) time each day. Active hydrOXYzine HCl (Atarax) 25 MG tablet 03/29/2022 Active Synthroid 75 MCG tablet 02/11/2022 Active rosuvastatin (Crestor) 5 MG tablet 02/11/2022 Active tamoxifen (Nolvadex) 20 MG chemo tablet Take 1 tablet (20 mg total) by mouth 1 (one) time each day. 11/12/2021 Active telmisartan (MIcarDIS) 40 MG tablet 02/11/2022 Active traZODone (Desyrel) 50 MG tablet 1 (one) time each day. 11/13/2021 Active ketoconazole (NIZOral) 2 % shampoo WASH SCALP 2 TO 3 TIMES EVERY WEEK. LET SIT 5 MINUTES BEFORE RINSING THEN FOLLOW WITH REGULAR SHAMPOO 07/06/2022 Active traZODone (Desyrel) 100 MG tablet Take 1 tablet (100 mg) by mouth every night. 03/02/2023 Active Social History Tobacco Use Types Packs/Day Years Used Date Smoking Tobacco: Never Smokeless Tobacco: Never Alcohol Use Standard Drinks/Week Comments Never 0 (1 standard drink = 0.6 oz pur e alcohol) PHQ-2 Answer Date Recorded Patient Health Questionnaire-2 Score 0 05/04/2023 PHQ-2A Answer Date Recorded Patient Health Questionnaire-2 Score 0 05/04/2023 Comments Unknown Sex and Gender Information Value Date Recorded Sex Assigned at Not on file Legal Sex Female 11:42 AM EDT Gender Identity Not on file Sexual Orientation Not on file Last Filed Vital Signs Vital Sign Reading Time Taken Comments Blood Pressure 125/79 05/04/2023 1:50 PM EDT Pulse 66 05/04/2023 1:50 PM EDT Temperature - - Respiratory Rate - - Oxygen Saturation 97% 05/04/2023 1:50 PM EDT Inhaled Oxygen Concentration - - Weight 77.6 kg (171 lb) 04/06/2022 2:11 PM EDT Height 160 cm (5' 3 ) 04/06/2022 2:11 PM EDT Body Mass Index 30.29 04/06/2022 2:11 PM EDT Plan of Treatment Health Maintenance Due Date Last Done Comments [facility]-Bone Density Scan 1957 [facility]-Hepatitis C Screening 1957 [facility]-Medicare Annual Wellness (AWV) 1955 [facility]-/Child/Adol SDOH Screenings 1955 [facility]- SDOH Screenings 1975 [facility]-Adult SDOH Screenings 1975 [facility]-DTaP,Tdap,and Td Vaccines (1 - Tdap) 02/16/1976 CT Colonography 2002 Colonoscopy 2002 FIT-DNA 2002 FIT 2002 FOBT 2002 Sigmoidoscopy 2002 [facility]-Colorectal Cancer Screening 2002 [facility]-Pneumococcal Vaccine: 50+ Years (1 of 1 - PCV) 2007 [facility]-RSV Vaccine: 60+ Years or (1 - Risk 50-74 years 1-dose series) 2007 [id number] Vaccine (3 - Moderna risk series) 12/25/2020 11/27/2020, 10/30/2020 [facility]-Zoster Vaccines (2 of 2) 07/11/2022 05/16/2022 [facility]-Depression Screening 05/04/2024 05/04/2023 [facility]-Breast Cancer Screening 06/22/202406/05, 01/27/2021, 01/08/2021, Additional history exists [facility]-Influenza Vaccine (#1) 05/06/202506/09, 06/10/2020, 05/30/2019, Additional history exists HPV Vaccines (No Doses Required) Completed [facility]-HIB Vaccines Aged Out No longer e ligible based on patient's age to complete this topic [facility]-Hepatitis A Vaccines Aged Out No longer eligible based on patient's age to complete this topic [facility]-IPV Vaccines Aged Out No longer e ligible based on patient's age to complete this topic [facility]-Rotavirus Vaccines Aged Out No lo nger eligible based on patient's age to complete this topic Insurance [place] [address] Care Teams Club Director Relationship Specialty Start Date End Date Rosemary Simon [id number] PCP - General 03/11/22
--- OUTSIDE RECORDS SUMMARY | 2025-09-04 08:12 | XMS_ITS | Data Portability ---
Author Organization [email or web address] [facility] Address [address] [place] [address] Assessment Encounter Date Assessment Date Assessment LastModified by Organization Details LastModified Time 05/22/2025 05/22/2025 Patient presente d to office today for their Medicare Annual Wellness Visit. Education was provided on healthy nutrition, including a diet rich in fruits and vegetables, minimizing simple carbohydrates, salt, and saturated fats. Encouraged regular cardiovascular exercise such as walking at least 30 minutes daily, 5 times per week. Emphasized preventive health measures and educated pt on fall prevention and community-based lifestyle interventions to help reduce health risks and promote healthy living. [email or web address] Not available 05/22/2025 13:46:41 08/14/2025 08/14/2025 Charmaine Prasad presented with 15-month [...] available Not available *ANNUAL EXAM 2025 11:00A M H. Hamm, COLD PRESS LOADER Not available Not available Not available Lab renal function panel, serum 2024 025 [facility] ([place]), [address] [place], [address], 09/03/2025 04:13:29 lipid panel, serum 2024 025 [facility] ([place]), [address] [place], [address], 05/23/2025 23:48:31 TSH, ultra-sen sitive, serum 2024 025 [facility] ([place]), [address] [place], [address], 05/23/2025 23:48:32 CBC w/ auto diff 2024 025 [facility] ([place]), [address] [place], [address], 05/23/2025 23:48:30 CMP, serum or plasma 2024 025 [facility] ([place]), [address] [place], [address], 05/23/2025 23:48:31 lipid panel, serum 2023 024 [facility] ([place]), [address] [place], [address], 06/30/2024 05:07:30 CBC w/ auto diff 2023 024 [facility] ([place]), [address] [place], [address], 06/30/2024 05:07:29 CMP, serum or plasma 2023 024 [facility] ([place]), [address] [place], [address], 06/30/2024 05:07:30 TSH, ultra-sen sitive, serum 2023 [place] [facility] ([place]), [address], [place], [address], 06/30/2024 05:07:31 Referral gastroent erologist referral - IBS-C with epigastri c pain and bloating. Has failed fiber, miralax and linzess, PPIs; needs consult, EGD & colonosco py 2023 [facility] Tom Reyes MD, [address], [place], [address], 07/20/2024 11:51:16 Procedures None recorded. Surgeries None recorded. Imaging CT, abdomen, w/wo contrast [address] ([facility]), [address], [place], [address], 08/21/2025 09:14:40 XR, chest, 2 view 2023 [facility], [address] [place] [address], [id number], 07/13/2024 12:24:04 Medication Orders cyclobenz aprine 5 mg tablet 2024 [facility], [address] [place] [address], [id number], 08/14/2025 14:54:52 pantopraz ole 40 mg tablet,de layed release 2024 [facility], [address] [place] [address], [address], 08/14/2025 14:39:46 rosuvasta tin 5 mg tablet 2024 [facility], [address] [place] [address], [address], 07/29/2025 17:59:00 telmisart an 40 mg tablet 2024 025 [facility], [address] [place] [address], [address], 05/29/2025 16:06:13 trazodone 100 mg tablet 2024 025 [facility], [address] [place] [address], [address], 07/29/2025 17:58:59 magnesium oxide 400 mg (241.3 mg magnesium ) tablet 2024 025 [facility], [address] [place] [address], [address], 05/29/2025 16:06:15 levothyro xine 88 mcg tablet 2024 025 [facility], [address] [place] [address], [address], 07/29/2025 17:59:00 ceftriaxo ne 1 gram solution for injection 2024 025 Not available 05/22/2025 14:03:30 triamcino lone acetonide 40 mg/mL suspensio n for injection 2024 025 Not available 05/22/2025 14:04:17 doxycycli ne monohydra te 100 mg capsule 2024 025 [facility], [address] [place] [address], [address], 09/28/2024 14:45:43 fluticaso ne propionat e 50 mcg/actua tion nasal spray,ethel pension 2024 025 [facility], [address] [place] [address], [address], 05/22/2025 14:21:56 Patient TargetsNo targets recorded. Patient Instructions Encounter Date Encounter Id Patient Instructions Last Modified By Organization Details Last Modified Time 05/22/2025 [id number] advance care planning: care instructions Not available 05/22/2025 14:10:38 Discussed and explained advance directives such as standard forms to the patient. Face to face discussion lasted for a duration of _5__ minutes. 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 Has failed fiber, miralax and linzess, PPIs; needs consult, EGD & colonoscopy Referring Physician: Tomeka Hamm, Family Medicine, Encounter Date: 06/29/2024 Results Created Date Observation Date Name Description Value Unit Range Abnormal Flag Note LastModifiedBy Organization Detail LastModifiedTime 06/29/2006/30/2024 CBC WITH DIFFE RENTI AL/PL ATELE T WBC 8.5 x10e3 /uL 3.4-10 .8 normal Not Available [facility] ([facility]) [address] [place], [address], 06/30/2024 05:07:29 06/29/2006/30/2024 CBC WITH DIFFE RENTI AL/PL ATELE T RBC 4.71 x10e6 /uL 3.77-5 .28 normal Not Available [facility] ([facility]) [address] [place], [address], 06/30/2024 05:07:29 06/29/2006/30/2024 CBC WITH DIFFE RENTI AL/PL ATELE T hemoglobin 14.4 g/dL 11.1-1 5.9 normal Not Available [facility] ([facility]) [address] [place], [address], 06/30/2024 05:07:29 06/29/20 24 06/30/2024 CBC WITH DIFFE RENTI AL/PL ATELE T hematocrit 43.7 % 34.0-4 6.6 normal Not Available [facility] ([facility]) [address] [place], [address], 06/30/2024 05:07:29 06/29/2006/30/2024 CBC WITH DIFFE RENTI AL/PL ATELE T MCV 93 fL 79-97 normal Not Available [facility] ([facility]) [address] [facility], [place], [address], 06/30/2024 05:07:29 06/29/2006/30/2024 CBC WITH DIFFE RENTI AL/PL ATELE T MCH 30.6 pg 26.6-3 3.0 normal Not Available [facility] ([facility]) [address] [facility], [place], [address], 06/30/2024 05:07:29 06/29/2006/30/2024 CBC WITH DIFFE RENTI AL/PL ATELE T MCHC 33.0 g/dL 31.5-3 5.7 normal Not Available [facility] ([facility]) [address] [facility], [place], [address], 06/30/2024 05:07:29 06/29/2006/30/2024 CBC WITH DIFFE RENTI AL/PL ATELE T RDW 12.3 % 11.7-1 5.4 Not Available [facility] ([facility]) [address] [facility], [place], [address], 06/30/2024 05:07:29 06/29/2006/30/2024 CBC WITH DIFFE RENTI AL/PL ATELE T platelets 304 x10e3 /uL 150-45 0 normal Not Available [facility] ([facility]) [address] [facility], [place], [address], 06/30/2024 05:07:29 06/29/2006/30/2024 CBC WITH DIFFE RENTI AL/PL ATELE T neutrophils 58 % not estab. normal Not Available [facility] ([facility]) [address] [facility], [place], [address], 06/30/2024 05:07:29 06/29/20 24 06/30/2024 CBC WITH DIFFE RENTI AL/PL ATELE T lymphs 31 % not estab. normal Not Available [facility] ([facility]) [address] [facility], [place], [address], 06/30/2024 05:07:29 06/29/2006/30/2024 CBC WITH DIFFE RENTI AL/PL ATELE T monocytes 7 % not estab. normal Not Available [facility] ([facility]) [address] [facility], [place], [address], 06/30/2024 05:07:29 06/29/2006/30/2024 CBC WITH DIFFE RENTI AL/PL ATELE T eos 3 % not estab. normal Not Available [facility] ([facility]) [address] [facility], [place], [address], 06/30/2024 05:07:29 06/29/20 24 06/30/2024 CBC WITH DIFFE RENTI AL/PL ATELE T basos 1 % not estab. normal Not Available [facility] ([facility]) [address] [place], [address], 06/30/2024 05:07:29 06/29/2006/30/2024 CBC WITH DIFFE RENTI AL/PL ATELE T immature cells SOCCER PLAYER Not Available [facility] ([facility]) [address] [place], [address], 06/30/2024 05:07:29 06/29/2006/30/2024 CBC WITH DIFFE RENTI AL/PL ATELE T neutrophils (absolute) 4.9 x10e3 /uL 1.4-7. 0 normal Not Available [facility] ([facility]) [address] [place], [address], 06/30/2024 05:07:29 06/29/2006/30/2024 CBC WITH DIFFE RENTI AL/PL ATELE T lymphs (absolute) 2.7 x10e3 /uL 0.7-3. 1 normal Not Available [facility] ([facility]) [address] [facility], [place], [address], 06/30/2024 05:07:29 06/29/20 24 06/30/2024 CBC WITH DIFFE RENTI AL/PL ATELE T monocytes(ab solute) 0.6 x10e3 /uL 0.1-0. 9 normal Not Available [facility] ([facility]) [address] [facility], [place], [address], 06/30/2024 05:07:29 06/29/2006/30/2024 CBC WITH DIFFE RENTI AL/PL ATELE T eos (absolute) 0.2 x10e3 /uL 0.0-0. 4 normal Not Available [facility] ([facility]) [address] [facility], [place], [address], 06/30/2024 05:07:29 06/29/20 24 06/30/2024 CBC WITH DIFFE RENTI AL/PL ATELE T baso (absolute) 0.1 x10e3 /uL 0.0-0. 2 normal Not Available [facility] ([facility]) [address] [facility], [place], [address], 06/30/2024 05:07:29 06/29/2006/30/2024 CBC WITH DIFFE RENTI AL/PL ATELE T immature granulocytes 0 % not estab. Not Available [facility] ([facility]) [address] [place], [address], 06/30/2024 05:07:29 06/29/20 24 06/30/2024 CBC WITH DIFFE RENTI AL/PL ATELE T immature grans (abs) 0.0 x10e3 /uL 0.0-0. 1 Not Available [facility] ([facility]) [address] [place], [address], 06/30/2024 05:07:29 06/29/20 24 06/30/2024 CBC WITH DIFFE RENTI AL/PL ATELE T NRBC SOCCER PLAYER Not Available [facility] ([facility]) [address] [facility], [place], [address], 06/30/2024 05:07:29 06/29/20 24 06/30/2024 CBC WITH DIFFE RENTI AL/PL ATELE T hematology comments: SOCCER PLAYER Not Available [facility] ([facility]) [address] [facility], [place], [address], 06/30/2024 05:07:29 06/29/2006/30/2024 COMP. METAB OLIC PANEL (14) glucose 109 mg/dL 70-99 above high normal Not Available [facility] ([facility]) [address] [facility] [place], [address], 06/30/2024 05:07:30 06/29/20 24 06/30/2024 COMP. METAB OLIC PANEL (14) BUN 15 mg/dL 8-27 normal Not Available [facility] ([facility]) [address] [place], [address], 06/30/2024 05:07:30 06/29/20 24 06/30/2024 COMP. METAB OLIC PANEL (14) creatinine 1.00 mg/dL 0.57-1 .00 normal Not Available [facility] ([facility]) [address] [facility], [place], [address], 06/30/2024 05:07:30 06/29/20 24 06/30/2024 COMP. METAB OLIC PANEL (14) eGFR 62 mL/mi n/1.7 3 >59 normal Not Available [facility] ([facility]) [address] [facility] [place], [address], 06/30/2024 05:07:30 06/29/20 24 06/30/2024 COMP. METAB OLIC PANEL (14) BUN/creatini ne ratio 15 12-28 normal Not Available [facility] ([facility]) [address] [facility] [place], [address], 06/30/2024 05:07:30 06/29/20 24 06/30/2024 COMP. METAB OLIC PANEL (14) sodium 139 mmol/ L 134-14 4 normal Not Available [facility] ([facility]) [address] [facility] [place], [address], 06/30/2024 05:07:30 06/29/20 24 06/30/2024 COMP. METAB OLIC PANEL (14) potassium 4.4 mmol/ L 3.5-5. 2 normal Not Available [facility] ([facility]) [address] [facility], [place], [address], 06/30/2024 05:07:30 06/29/20 24 06/30/2024 COMP. METAB OLIC PANEL (14) chloride 103 mmol/ L 96-106 normal Not Available [facility] ([facility]) [address] [facility] [place], [address], 06/30/2024 05:07:30 06/29/20 24 06/30/2024 COMP. METAB OLIC PANEL (14) carbon dioxide, total 23 mmol/ L 20-29 normal Not Available [facility] ([facility]) [address] [facility], [place], [address], 06/30/2024 05:07:30 06/29/20 24 06/30/2024 COMP. METAB OLIC PANEL (14) calcium 9.3 mg/dL 8.7-10 .3 normal Not Available [facility] ([facility]) [address] [facility] [place], [address], 06/30/2024 05:07:30 06/29/20 24 06/30/2024 COMP. METAB OLIC PANEL (14) protein, total 7.5 g/dL 6.0-8. 5 normal Not Available [facility] ([facility]) [address] [facility] [place], [address], 06/30/2024 05:07:30 06/29/20 24 06/30/2024 COMP. METAB OLIC PANEL (14) albumin 4.4 g/dL 3.9-4. 9 normal Not Available [facility] ([facility]) [address] [facility] [place], [address], 06/30/2024 05:07:30 06/29/20 24 06/30/2024 COMP. METAB OLIC PANEL (14) globulin, total 3.1 g/dL 1.5-4. 5 Not Available [facility] ([facility]) [address] [facility] [place], [address], 06/30/2024 05:07:30 06/29/20 24 06/30/2024 COMP. METAB OLIC PANEL (14) bilirubin, total 0.2 mg/dL 0.0-1. 2 normal Not Available [facility] ([facility]) [address] [facility] [place], [address], 06/30/2024 05:07:30 06/29/20 24 06/30/2024 COMP. METAB OLIC PANEL (14) alkaline phosphatase 96 IU/L 44-121 normal Not Available [facility] ([facility]) [address] [facility] [place], [address], 06/30/2024 05:07:30 06/29/20 24 06/30/2024 COMP. METAB OLIC PANEL (14) AST (SGOT) 13 IU/L 0-40 normal Not Available [facility] ([facility]) [address] [facility] [place], [address], 06/30/2024 05:07:30 06/29/20 24 06/30/2024 COMP. METAB OLIC PANEL (14) ALT (SGPT) 9 IU/L 0-32 normal Not Available [facility] ([facility]) [address] [facility], [place], [address], 06/30/2024 05:07:30 06/29/2006/30/2024 LIPID PANEL cholesterol, total 149 mg/dL 100-19 9 normal Not Available [facility] ([facility]) [address] [facility] [place], [address], 06/30/2024 05:07:30 06/29/2006/30/2024 LIPID PANEL triglyceride s 131 mg/dL 0-149 normal Not Available [facility] ([facility]) [address] [facility] [place], [address], 06/30/2024 05:07:30 06/29/2006/30/2024 LIPID PANEL HDL cholesterol 45 mg/dL >39 normal Not Available [facility] ([facility]) [address] [place], [address], 06/30/2024 05:07:30 06/29/2006/30/2024 LIPID PANEL VLDL cholesterol lesley 23 mg/dL 5-40 Not Available [facility] ([facility]) [address] [place], [address], 06/30/2024 05:07:30 06/29/2006/30/2024 LIPID PANEL LDL chol calc ([facility]) 81 mg/dL 0-99 Not Available [facility] ([facility]) [address] [place], [address], 06/30/2024 05:07:30 06/29/2006/30/2024 LIPID PANEL LDL calc comment: SOCCER PLAYER Not Available [facility] ([facility]) [address] [place], [address], 06/30/2024 05:07:30 06/29/2006/30/2024 TSH RFX ON ABNOR MAL TO FREE T4 TSH 6.500 uIU/m L 0.450- 4.500 above high normal Not Available [facility] ([facility]) [address] [facility], [place], [address], 06/30/2024 05:07:31 06/29/20 24 06/30/2024 TSH RFX ON ABNOR MAL TO FREE T4 T4,free (direct) 1.46 NG/dL 0.82-1 .77 normal Not Available [facility] ([facility]) [address] [facility], [place], [address], 06/30/2024 05:07:31 05/22/20 25 05/23/2025 CBC WITH DIFFE RENTI AL/PL ATELE T WBC 8.6 x10e3 /uL 3.4-10 .8 normal Not Available [facility] ([facility]) [address] [facility], [place], [address], 05/23/2025 23:48:30 05/22/2005/23/2025 CBC WITH DIFFE RENTI AL/PL ATELE T RBC 4.33 x10e6 /uL 3.77-5 .28 normal Not Available [facility] ([facility]) [address] [place], [address], 05/23/2025 23:48:30 05/22/20 25 05/23/2025 CBC WITH DIFFE RENTI AL/PL ATELE T hemoglobin 13.7 g/dL 11.1-1 5.9 normal Not Available [facility] ([facility]) [address] [place], [address], 05/23/2025 23:48:30 05/22/20 25 05/23/2025 CBC WITH DIFFE RENTI AL/PL ATELE T hematocrit 41.3 % 34.0-4 6.6 normal Not Available [facility] ([facility]) [address] [place], [address], 05/23/2025 23:48:30 05/22/20 25 05/23/2025 CBC WITH DIFFE RENTI AL/PL ATELE T MCV 95 fL 79-97 normal Not Available [facility] ([facility]) [address] [facility], [place], [address], 05/23/2025 23:48:30 05/22/20 25 05/23/2025 CBC WITH DIFFE RENTI AL/PL ATELE T MCH 31.6 pg 26.6-3 3.0 normal Not Available [facility] ([facility]) [address] [facility], [place], [address], 05/23/2025 23:48:30 05/22/20 25 05/23/2025 CBC WITH DIFFE RENTI AL/PL ATELE T MCHC 33.2 g/dL 31.5-3 5.7 normal Not Available [facility] ([facility]) [address] [facility], [place], [address], 05/23/2025 23:48:30 05/22/20 25 05/23/2025 CBC WITH DIFFE RENTI AL/PL ATELE T RDW 12.2 % 11.7-1 5.4 Not Available [facility] ([facility]) [address] [place], [address], 05/23/2025 23:48:30 05/22/20 25 05/23/2025 CBC WITH DIFFE RENTI AL/PL ATELE T platelets 308 x10e3 /uL 150-45 0 normal Not Available [facility] ([facility]) [address] [place], [address], 05/23/2025 23:48:30 05/22/20 25 05/23/2025 CBC WITH DIFFE RENTI AL/PL ATELE T neutrophils 64 % not estab. normal Not Available [facility] ([facility]) [address] [facility], [place], [address], 05/23/2025 23:48:30 05/22/20 25 05/23/2025 CBC WITH DIFFE RENTI AL/PL ATELE T lymphs 25 % not estab. normal Not Available [facility] ([facility]) [address] [place], [address], 05/23/2025 23:48:30 05/22/20 25 05/23/2025 CBC WITH DIFFE RENTI AL/PL ATELE T monocytes 8 % not estab. normal Not Available [facility] ([facility]) [address] [place], [address], 05/23/2025 23:48:30 05/22/20 25 05/23/2025 CBC WITH DIFFE RENTI AL/PL ATELE T eos 2 % not estab. normal Not Available [facility] ([facility]) [address] [place], [address], 05/23/2025 23:48:30 05/22/20 25 05/23/2025 CBC WITH DIFFE RENTI AL/PL ATELE T basos 1 % not estab. normal Not Available [facility] ([facility]) [address] [place], [address], 05/23/2025 23:48:30 05/22/20 25 05/23/2025 CBC WITH DIFFE RENTI AL/PL ATELE T immature cells SOCCER PLAYER Not Available [facility] ([facility]) [address] [place], [address], 05/23/2025 23:48:30 05/22/20 25 05/23/2025 CBC WITH DIFFE RENTI AL/PL ATELE T neutrophils (absolute) 5.5 x10e3 /uL 1.4-7. 0 normal Not Available [facility] ([facility]) [address] [place], [address], 05/23/2025 23:48:30 05/22/20 25 05/23/2025 CBC WITH DIFFE RENTI AL/PL ATELE T lymphs (absolute) 2.2 x10e3 /uL 0.7-3. 1 normal Not Available [facility] ([facility]) [address] [place], [address], 05/23/2025 23:48:30 05/22/20 25 05/23/2025 CBC WITH DIFFE RENTI AL/PL ATELE T monocytes(ab solute) 0.7 x10e3 /uL 0.1-0. 9 normal Not Available [facility] ([facility]) [address] [facility], [place], [address], 05/23/2025 23:48:30 05/22/20 25 05/23/2025 CBC WITH DIFFE RENTI AL/PL ATELE T eos (absolute) 0.2 x10e3 /uL 0.0-0. 4 normal Not Available [facility] ([facility]) [address] [facility], [place], [address], 05/23/2025 23:48:30 05/22/20 25 05/23/2025 CBC WITH DIFFE RENTI AL/PL ATELE T baso (absolute) 0.1 x10e3 /uL 0.0-0. 2 normal Not Available [facility] ([facility]) [address] [facility], [place], [address], 05/23/2025 23:48:30 05/22/20 25 05/23/2025 CBC WITH DIFFE RENTI AL/PL ATELE T immature granulocytes 0 % not estab. Not Available [facility] ([facility]) [address] [facility], [place], [address], 05/23/2025 23:48:30 05/22/20 25 05/23/2025 CBC WITH DIFFE RENTI AL/PL ATELE T immature grans (abs) 0.0 x10e3 /uL 0.0-0. 1 Not Available [facility] ([facility]) [address] [facility], [place], [address], 05/23/2025 23:48:30 05/22/20 25 05/23/2025 CBC WITH DIFFE RENTI AL/PL ATELE T NRBC SOCCER PLAYER Not Available [facility] ([facility]) [address] [facility] [place], [address], 05/23/2025 23:48:30 05/22/20 25 05/23/2025 CBC WITH DIFFE PETE AL/PL ROSHANLE T hematology comments: SOCCER PLAYER Not Available [facility] ([facility]) [address] [facility] [place], [address], 05/23/2025 23:48:30 05/22/20 25 05/23/2025 COMP. METAB OLIC PANEL (14) glucose 112 mg/dL 70-99 above high normal Not Available [facility] ([facility]) [address] [facility] [place], [address], 05/23/2025 23:48:31 05/22/20 25 05/23/2025 COMP. METAB OLIC PANEL (14) BUN 15 mg/dL 8-27 normal Not Available [facility] ([facility]) [address] [facility] [place], [address], 05/23/2025 23:48:31 05/22/20 25 05/23/2025 COMP. METAB OLIC PANEL (14) creatinine 1.05 mg/dL 0.57-1 .00 above high normal Not Available [facility] ([facility]) [address] [facility] [place], [address], 05/23/2025 23:48:31 05/22/20 25 05/23/2025 COMP. METAB OLIC PANEL (14) eGFR 58 mL/mi n/1.7 3 >59 below low normal Not Available [facility] ([facility]) [address] [facility] [place], [address], 05/23/2025 23:48:31 05/22/20 25 05/23/2025 COMP. METAB OLIC PANEL (14) BUN/creatini ne ratio 14 12-28 normal Not Available [facility] ([facility]) [address] [facility] [place], [address], 05/23/2025 23:48:31 05/22/20 25 05/23/2025 COMP. METAB OLIC PANEL (14) sodium 139 mmol/ L 134-14 4 normal Not Available [facility] ([facility]) [address] [facility] [place], [address], 05/23/2025 23:48:31 05/22/20 25 05/23/2025 COMP. METAB OLIC PANEL (14) potassium 4.6 mmol/ L 3.5-5. 2 normal Not Available [facility] ([facility]) [address] [facility] [place], [address], 05/23/2025 23:48:31 05/22/20 25 05/23/2025 COMP. METAB OLIC PANEL (14) chloride 101 mmol/ L 96-106 normal Not Available [facility] ([facility]) [address] [facility] [place], [address], 05/23/2025 23:48:31 05/22/20 25 05/23/2025 COMP. METAB OLIC PANEL (14) carbon dioxide, total 21 mmol/ L 20-29 normal Not Available [facility] ([facility]) [address] [facility] [place], [address], 05/23/2025 23:48:31 05/22/20 25 05/23/2025 COMP. METAB OLIC PANEL (14) calcium 9.3 mg/dL 8.7-10 .3 normal Not Available [facility] ([facility]) [address] [facility] [place], [address], 05/23/2025 23:48:31 05/22/20 25 05/23/2025 COMP. METAB OLIC PANEL (14) protein, total 7.1 g/dL 6.0-8. 5 normal Not Available [facility] ([facility]) [address] [facility] [place], [address], 05/23/2025 23:48:31 05/22/20 25 05/23/2025 COMP. METAB OLIC PANEL (14) albumin 4.3 g/dL 3.9-4. 9 normal Not Available [facility] ([facility]) [address] [place], [address], 05/23/2025 23:48:31 05/22/20 25 05/23/2025 COMP. METAB OLIC PANEL (14) globulin, total 2.8 g/dL 1.5-4. 5 Not Available [facility] ([facility]) [address] [place], [address], 05/23/2025 23:48:31 05/22/2005/23/2025 COMP. METAB OLIC PANEL (14) bilirubin, total 0.3 mg/dL 0.0-1. 2 normal Not Available [facility] ([facility]) [address] [facility] [place], [address], 05/23/2025 23:48:31 05/22/20 25 05/23/2025 COMP. METAB OLIC PANEL (14) alkaline phosphatase 87 IU/L 49-135 normal Ple ase note refer ence josue malloy Not Available [facility] ([facility]) [address] [facility], [place], [address], 05/23/2025 23:48:31 05/22/20 25 05/23/2025 COMP. METAB OLIC PANEL (14) AST (SGOT) 15 IU/L 0-40 normal Not Available [facility] ([facility]) [address] [facility] [place], [address], 05/23/2025 23:48:31 05/22/20 25 05/23/2025 COMP. METAB OLIC PANEL (14) ALT (SGPT) 8 IU/L 0-32 normal Not Available [facility] ([facility]) [address] [facility] [place], [address], 05/23/2025 23:48:31 05/22/20 25 05/23/2025 LIPID PANEL cholesterol, total 143 mg/dL 100-19 9 normal Not Available [facility] ([facility]) [address] [facility], [place], [address], 05/23/2025 23:48:31 05/22/20 25 05/23/2025 LIPID PANEL triglyceride s 123 mg/dL 0-149 normal Not Available [facility] ([facility]) [address] [facility], [place], [address], 05/23/2025 23:48:31 05/22/20 25 05/23/2025 LIPID PANEL HDL cholesterol 48 mg/dL >39 normal Not Available [facility] ([facility]) [address] [facility], [place], [address], 05/23/2025 23:48:31 05/22/20 25 05/23/2025 LIPID PANEL VLDL cholesterol lesley 22 mg/dL 5-40 Not Available [facility] ([facility]) [address] [facility], [place], [address], 05/23/2025 23:48:31 05/22/20 25 05/23/2025 LIPID PANEL LDL chol calc ([facility]) 73 mg/dL 0-99 Not Available [facility] ([facility]) [address] [place], [address], 05/23/2025 23:48:31 05/22/20 25 05/23/2025 LIPID PANEL LDL calc comment: [employer]ER Not Available [facility] ([facility]) [address] [facility], [place], [address], 05/23/2025 23:48:31 05/22/20 25 05/23/2025 TSH RFX ON ABNOR MAL TO FREE T4 TSH 1.680 uIU/m L 0.450- 4.500 normal Not Available [facility] ([facility]) [address] [place], [address], 05/23/2025 23:48:32 07/13/20 24 XR, chest , 2 view No observ ation record ed. [facility] - [address], [place], [address], 07/13/2024 17:31:02 06/14/20 25 06/20/2024 MAMMO , scree jalen, digit al, bilat eral No observ ation record ed. [email or web address] Not Available 06/14 15:45:09 Result Notes None recorded. Problems Name Problem SNOMED Code Status Onset Date Resolution Date Notes Provider Name and Address Organization Details Recorded Time Lumpectom y of breast Completed 06/22/2023 ABIMAEL CURIEL [address], [address], [employer] 3 10:10:04 Hypertens aubree disorder 43620692 Active 2022 ABIMAEL CURIEL [address], [address], [employer] 3 10:09:30 Mixed hyperlipi demia 196368978 Active 2022 ABIMAEL CURIEL [address], [address], [employer] 3 10:09:44 Hypothyro idism 18129784 Active 2022 ABIMAEL CURIEL [address], [address], [employer] 10:09:38 Insomnia 641038801 Active 2022 ABIMAEL CURIEL [address], [address], [employer] 3 10:09:40 Muscle spasm of cervical muscle of neck 145163032476 Active 2024 Tomeka Hamm APRN [address] [place] [address], [address], [employer] 14:20:25 Body mass index 25-29 - overweigh t 050426350 Active 2024 Tomeka Hamm APRN [address] [place] [address], [address] [place] [address] 8, [employer] 15:47:27 Lower esophagea l ring 639330629 Active 2024 Tomeka Hamm APRN [address] [place] [address], [address] [place] [address] 8, [employer] 13:57:02 Irritable bowel syndrome character ized by constipat ion 195690801 Active 2024 Tomeka Hamm APRN [address] [place] [address], [address] [place] [address] 8, [employer] 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 13:57:28 Hiatal hernia 11461007 Active 2024 Tomeka Hamm APRN [address] [place] [address], [address] [place] [address] 8, [employer] 13:59:17 Problem Notes None recorded. Procedures Surgical History Date Name Laterality Status Provider Name and Address Organization Details Recorded Time 06/20/20 24 Most Recent Mammogram completed Vandana Frias [employer] 10/01/2024 10:38:14 Breast Biopsy completed [employer] 06/22/2023 09:17:14 Hysterectomy completed [employer] 06/22/2023 09:12:23 Tonsillectomy completed [employer] 06/22/2023 09:12:23 Tubal Ligation completed [employer] 06/22/2023 09:12:23 Dilation and Curettage completed [employer] 06/22/2023 09:12:23 lumpectomy of right breast completed [facility] [employer] [facility] [employer] [facility] 06/22/2023 09:17:26 lithotripsy completed [facility] [employer] [facility] 06/22/2023 09:17:45 Imaging Results None recorded. Procedure [...] and Address Organization Details Last Updated DateTime 5 160.02 cm 28.8 kg/m2 76165.8 4 g 98.6 [degF] 71 /min 97 % 134/75 mm[Hg] [facility] OHARA [facility] [employer] 5 14:35:12 Date Recorded Body height Body mass index (BMI) Body weight Body temperature Heart rate Oxygen saturation Systolic And Diastolic Provider Name and Address Organization Details Last Updated DateTime 5 160.02 cm 28.7 kg/m2 62771.9 6 g 98.7 [degF] 70 /min 95 % 115/63 mm[Hg] EULOGIO MYNE[employer] 5 14:34:20 Date Recorded Body height Body mass index (BMI) Body weight Body temperature Heart rate Oxygen saturation Systolic And Diastolic Provider Name and Address Organization Details Last Updated DateTime 5 160.02 cm 29.3 kg/m2 95952.4 6 g 98.3 [degF] 84 /min 96 % 129/74 mm[Hg] [employer] 5 13:53:05 Date Recorded Body height Body mass index (BMI) Body weight Body temperature Heart rate Oxygen saturation Systolic And Diastolic Provider Name and Address Organization Details Last Updated DateTime 4 160.02 cm 28.7 kg/m2 50668.9 6 g 98 [degF] 68 /min 96 % 118/75 mm[Hg] [employer]IO [employer] 4 08:19:18 Date Recorded Body height Body mass index (BMI) Body weight Body temperature Heart rate Oxygen saturation Systolic And Diastolic Provider Name and Address Organization Details Last Updated DateTime 5 160.02 cm 29.1 kg/m2 22342.8 7 g 98.5 [degF] 98 /min 95 % 115/72 mm[Hg] [employer] 5 13:52:51 Social History Question Answer Notes LastModified by Organizat ion Details LastModified Time Tobacco Smoking Status Never Smoker ERNESTO mireles [employer] 06/22/2023 09:16:35 Do You Have An Advance Directive? No [email or web address] Information not available 06/22/2023 Is Your Home Air Conditioned? Yes [email or web address] Information not available 06/22/2023 Do You Wear A Helmet When Biking? No [email or web address] Information not available 06/22/2023 Are You Blind Or Do You Have Difficulty Seeing? No [email or web address] Information not available 06/22/2023 What Is Your Level Of Caffeine Consumption? Moderate [email or web address] Information not available 06/22/2023 Have You Been To An Area Known To Be High Risk For COVID-19? No [email or web address] Information not available 06/22/2023 Are You Deaf Or Do You Have Serious Difficulty Hearing? No [email or web address] Information not available 06/22/2023 What Type Of Diet Are You Following? REGULAR [email or web address] Information not available 06/22/2023 How Many Days Of Moderate To Strenuous Exercise, Like A Brisk Walk, Did You Do In The Last 7 Days? 0 [email or web address] Information not available 06/22/2023 Have There Been Any Changes To Your Family Or Social Situation? Yes [email or web address] Information no t available 06/22/2023 Are There Any Guns Present In Your Home? No [email or web address] Information not available 06/22/2023 Which Of Your Hands Is Dominant? Right [email or web address] Information not available 06/22/2023 Do You Have A Medical Power Of Pc Support Specialist? Yes [email or web address] Information not available 06/22/2023 What Was The Date Of Your Most Recent Tobacco Screening? 08/14/2025 [email or web address] Information not available 08/14/2025 Do You Have Any Pets? No [email or web address] Information not available 06/22/2023 What Is Your Relationship Status? [email or web address] Information not available 06/22/2023 Have You Repeated Any Grades? No [email or web address] Information not available 06/22/2023 Do You Use Your Seat Belt Or Car Seat Routinely? Yes [email or web address] Information not available 06/22/2023 Are You Sexually Active? Yes [email or web address] Information not available 06/22/2023 Do You Have Any Siblings? 5 [email or web address] Information not available 06/22/2023 Do You Have Smoke And Carbon Monoxide Detectors In Your Home? Yes [email or web address] Information not available 06/22/2023 Are You Passively Exposed To Smoke? No [email or web address] Information no t available 06/22/2023 Are There Any Smokers In Your House? No [email or web address] Information not available 06/22/2023 What Types Of Sporting Activities Do You Participate In? Walking [email or web address] Information not available 06/22/2023 Do You Use Sunscreen Routinely? No [email or web address] Information not available 06/22/2023 Has Tobacco Cessation Counseling Been Provided? No [email or web address] Information not available 06/22/2023 Have You Recently Traveled Abroad? No [email or web address] Information not available 06/22/2023 Do You Have Difficulty Walking Or Climbing Stairs? No [email or web address] Information not available 06/22/2023 Sex: Female Functional Status Question Answer Note LastModified by Organizat ion Details LastModified Time Do you use any illicit or recreational drugs? No [email or web address] Information not available 06/22/2023 Do you or have you ever used any other forms of tobacco or nicotine? No Information not available 06/22/2023 What is your level of alcohol consumption? None [email or web address] Information not available 06/22/2023 Are you currently employed? No [email or web address] Information not available 06/22/2023 Do you have transportation difficulties? No [email or web address] Information not available 06/22/2023 Do you have difficulty doing errands alone? No [email or web address] Information not available 06/22/2023 Are you able to care for yourself independently? Yes Information not available 06/22/2023 Do you have difficulty dressing, bathing, grooming, or toileting? No [email or web address] Information not available 06/22/2023 What is your exercise level? Occasional [email or web address] Information not available 06/22/2023 Mental Status Question Answer Note LastModified by Organization D etails LastModified Time Do you have difficulty concentrating, remembering or making decisions? No Information no t available 06/22/2023 Are you or have you been involved with bullying? No [email or web address] Information not available 06/22/2023 Family History Relationship Description Onset Age of this Age Resolved Age Notes LastModified by Organization Details LastModified Time Mother Hypercholest erolemia Not available 09:12:21 Mother Malignant neoplasm of colon [email or web address] Not available 09:12:21 Mother Hypertensive disorder [email or web address] Not available 09:12:21 Mother Heart disease [email or web address] Not available 09:12:21 Sister Hypercholest erolemia [email or web address] Not available 09:12:21 Sister Hypertensive disorder [email or web address] Not available 09:12:21 Father Hypercholest erolemia [email or web address] Not available 09:12:21 Father Hypertensive disorder [email or web address] Not available 09:12:21 Father Kidney disease [email or web address] Not available 09:12:21 Medical History Condition Response Breast Cancer Y Emergency room visit since last appointm ent. N Bladder or Kidney Problems Y High Cholesterol Y Headaches Y Hospitalizations N Thyroid Problems Y Hypertension Y Gynecological History Statement/Question Response Menses Monthly N HPV Vaccine Y Date of Last Pap Smear Most Recent Mammogram 06/20/2024 Age at First Child 27 Obstetrics History GPAL:G 0 P 0 0 0 0 Immunizations Vaccine Type Date Status Note Provider Nam e and Address Organization Details Recorded Time Tdap 3 completed ERNESTO FLORES [email or web address] 06/22/2023 10:13:15 Influenza, high-dose, quadrivalent, PF 3 completed ERNESTO FLORES [email or web address] 06/22/2023 10:13:16 Influenza, high-dose, trivalent, PF 4 completed Tomeka Hamm, [employer], [address], [employer] 07/01/2024 15:57:40 pneumococcal polysaccharide PPV23 4 completed Tomeka Hamm, [employer] [address] [place] [address], [address], [employer] 07/01/2024 15:57:40 Influenza, split virus, quadrivalent, preservative 1 completed ERNESTO mireles, [employer] 12/21/2023 12:56:03 zoster recombinant 2 completed ERNESTO FLORES [email or web address] 12/21/2023 12:56:03 COVID-19, mRNA, LNP-S, PF, 100 mcg/0.5mL dose or 50 mcg/0.25mL dose 1 completed ERNESTO FLORES [email or web address] 12/21/2023 12:56:03 COVID-19, mRNA, LNP-S, PF, 100 mcg/0.5mL dose or 50 mcg/0.25mL dose 1 completed ERNESTO mireles, [place] [employer] 12/21/2023 12:56:03 Influenza, split virus, trivalent, PF 9 completed ERNESTO FLORES [place], [place] [employer] 12/21/2023 12:56:03 Influenza, split virus, trivalent, PF 6 completed ERNESTO FLORES null, [employer] 12/21/2023 12:56:03 Influenza, split virus, quadrivalent, PF 0 completed ERNESTO FLORES [place] [employer] 12/21/2023 12:56:03 Influenza, split virus, quadrivalent, PF 7 completed ERNESTO LFORES [place], [place] [employer] 12/21/2023 12:56:03 Influenza, high-dose, trivalent, PF 5 completed Tomeka Hamm, [employer] [address] [place], [address], [facility] 08/14/2025 14:33:02 Past Encounters Encounter ID Performer Location Encounter Start Date Encounter Closed Date Diagnosis/Indication Diagnosis SNOMED-CT Code Diagnosis ICD10 Code Diagnosis IMO Codes Diagnosis Note [id number] ABIMAEL [place] [id number] 06/22/2023 08:41:40 06/22/2023 11:15:39 Hypertensive disorder 64700167 I10 Mixed hyperlipidemia 267 219428 E78.2 Insomnia 203637609 G47.0 0 Administra tion of influenza vaccine 64052214 Z23 Administra tion of tetanus vaccine 478738957 Z23 Hypothyroidism 73171445 E03.9 History of malignant neoplasm of breast 919424203 Z85.3 [id number] ABIMAEL [place] [id number] 12/21/2023 12:54:03 12/21/2023 13:34:14 Insomnia 130390898 G47.00 [id number] [place]a [place] [phone] 04/27/2024 16:18:07 04/27/2024 16:58:36 Body mass index 25-29 - overweight 665616075 Z68.28 Irritable bowel syndrome 09274308 K58.9 Patient presents with constipati on. Recommend increasing oral fluids with non-caffei nated, non-alcoho lic beverages. Increase daily dietary fiber. May drink prune juice or pear juice to initiate bowel regularity and then decrease as needed to maintain a once daily or every other day bowel habit. Tylenol or Motrin may be used as needed for cramping. Follow up as needed, or sooner if new symptoms develop. Insomnia 630481671 F51.0 1 Mixed hyperlipidemia 267 651402 E78.2 Hypothyroidism 81173996 E03.9 Hypertensive disorder 38 326993 I10 [id number] Tomeka [address] [address] 06/29/2024 08:01:30 06/29/2024 09:17:43 Administration of influenza vaccine 23167184 Z23 Adult heal th examination 629964442 Z00.00 Patient presented to office today for their Medicare Annual Wellness Visit. Education was provided on healthy nutrition, including a diet rich in fruits and vegetables , minimizing simple carbohydra tawanda, salt, and saturated fats. Encouraged regular cardiovasc ular exercise such as walking at least 30 minutes daily, 5 times per week. Emphasized preventive health measures and educated pt on fall prevention and community- based lifestyle interventi ons to help reduce health risks and promote healthy living. Hypertensive disorder 38 616022 I10 BP within goal today. Exercise and low salt diet encouraged . Hypothyroidism 61189724 E03.9 Mixed hyperlipidemia 267 981220 E78.2 Continue Crestor. Epigastric pain 80842775 R10.13 Continue PPI and fiber daily. Avoid soda. Needs EGD. Irritable bowel syndrome 94907215 K58.9 Colonoscop y due 08/2024. Persistent cough 3999050 02 R05.3 Administra tion of pneumococcal vaccine 95379020 Z23 Body mass index 25-29 - overweight 436032369 Z68.28 [id number] Tomeka Hamm [place] [phone] 09/21/2024 14:27:41 09/21/2024 15:22:06 Acute left otitis media 340999130 H66.92 Patient presents with signs/symp toms of otitis media. Will treat as below. Supportive care reviewed: humidifier use, raise HOB, saline nasal spray, encourage PO fluids. Recommende d acetaminop hen/ibupro fen PRN pain/fever Follow up as below. [id number] [place] [address] 09/28/2024 14:23:35 09/28/2024 14:52:54 Acute otitis media with effusion 182144918 H65.199 Continue flonase, add claritin. She has failed augmentin and doxy now. Susan refer to ENT if no better in 5-7 days. [id number] Tomeka Hamm [place] [phone] 05/22/2025 13:40:56 05/22/2025 16:26:37 Preventive procedure 703587978 Z00.00 [id number] Patient presented to office today for their Medicare Annual Wellness Visit. Education was provided on healthy nutrition, including a diet rich in fruits and vegetables , minimizing simple carbohydra tawanda, salt, and saturated fats. Encouraged regular cardiovasc ular exercise such as walking at least 30 minutes daily, 5 times per week. Emphasized preventive health measures and educated pt on fall prevention and community- based lifestyle interventi ons to help reduce health risks and promote healthy living. Hypertensive disorder 38 731731 I10 BP within goal today. Exercise and low salt diet encouraged . Mixed hyperlipidemia 267 118673 E78.2 Continue Crestor. Hypothyroidism 91200687 E03.9 Continue synthroid Muscle spa sm of cervical muscle of neck 0057341445 04 M62.390 7743858 Trial magnesium for muscle spasm and constipati on. Insomnia 048838785 F51.0 1 Continue trazodone. Body mass index 25-29 - overweight 951936067 E66.3 62711409 [id number] Tomeka Hamm APRN [address] [phone] 08/14/2025 13:35:48 08/14/2025 14:41:39 Influenza vaccination given 1409836064 9109 Z23 69200680 Lower esophageal ring 23 3983600 K22.2 8229 Irritable bowel syndrome characterized by constipation 438599211 K58.1 580087 Nonulcer dyspepsia 74879 07 K30 842785 Hiatal hernia 63019702 K 44.9 9218 Chronic ab dominal pain 333075824 R10.9 G89.29 745330 Lumbar radiculopathy 128 365522 M54.16 [id number] Health Concerns Section Related Observation LastModified by Organization Detai ls LastModified Time None Recorded Concern Status LastModified by Organization Details LastModified Time None Recorded Advance Directives Directive N: Payers Insurance Date Sequence Insurance Name Policy Number Policy [place] Covered Member ID [place] Member ID Guarantor Name 08/12/2025 2 [employer] [id number] Charmaine Prasad [id number] Charmaine Prasad 10/18/2024 2 [employer] (POS II) [id number] Charmaine Prasad [id number] Charmaine Prasad 08/13/2025 [place] [facility] Charmaine Prasad [id number] Charmaine Prasad 08/12/2025 1 [place] Charmaine Prasad [id number] Charmaine Prasad Notes Date Note Type Note Provider Name and Address Organization Details Recorded Time 06/29/2024 text/html Annual WellnessReported by PatientSocial/Behavior al HistoryFor diet and nutrition, patient reportsdiet is high in fat, low in fiber. For physical activity, patient reportsdoes not exercise on a regular basisbut reportsdiscussed weightbearing activities. For fracture risk, patient reportsno history of fractures,no recent explained fracture, andno sudden unexplained fractures. For additional lifestyle factors, patient reportsno tobacco useandno alcohol intake.Mental Status:For depression risk, patient reportsloss of interest in activities,sleep disturbances or insomnia, andloss of energybut reportsnever feels sad, empty, or tearful,no significant changes in weight,no agitation,no feelings of worthlessness or guilt,no thoughts of suicide,no history of depression, andno history of mood disorders.Functional AbilityFor hearing, patient reportsno loss of hearing. For vision, patient reportsno vision problems. Hypertension F/UReported by PatientHPIFor lifestyle, patient reportsnot exercising regularlyanddoes not adhere to low sodium diet. For medications, patient reportstaking medications as directedandno side effects from medication. For associated symptoms, patient reportsno dizziness,no lightheadedness,no chest pain,no shortness of breath,no palpitations,no edema,no calf pain with exertion, andno headache. HypothyroidReported by PatientHPIFor associated symptoms, patient reportsfatigue,constip ation, andweight gain ____lbs.. For reason for visit, patient reportstsh check/labs. For duration, patient reports>12 months. For treatment, patient reportstaking medication as prescribed.ROS as noted in the HPI Has chronic insomnia. Complains of fatigue and low motivation. Complains of persistent dry cough since she had pneumonia in 2018.Continues to struggle with IBS-C and epigastric pain. Colonoscopy due this fall. Linzess gave her diarrhea. Fiber and miralax not effective enough. Has epigastric pain and lower abd cramping after eating for months. Does drink soda. Tomeka Hamm, [employer] [address] [facility], [place], [address], [facility] [employer] 07/01/2024 16:03:35 09/21/2024 text/html Ear Pain Brief HPIReported by PatientHPIFor location, patient reportspain radiates to neckbut reportsleft. For severity, patient reportsinterferes with ability to sleepbut reportsno fever,able to perform daily activities,getting worse, andmild pain. For context, patient reportsrecent ear infectionbut reportsno recent uri,no recent trauma,no recent swimming,no immunocompromise,no dental problems,no recent airplane travel,no scuba diving, andnon-smoker. For associated symptoms, patient reportssense of fullness/pressure,decr eased hearing, andmuffled hearingbut reportsno vertigo,no jaw popping or clicking,no temporomandibular joint disease,no discharge from ear,no nasal congestion,no nasal discharge,no hearing loss,no sore throat,no dental pain,no jaw pain, andno tinnitus. For onset/timing, patient reportsrecurrent episode,intermittent pain, andgradual onset. For quality, patient reportsno itching,no discharge from the ears, andno burning. For alleviating factors, patient reportsoral antibiotics.ROS as noted in the HPI Completed a course of Augmentin approximately 1 month ago for otitis media. She states at times both ears are intermittently painful, and the left feels full. Tomeka Hamm APRN [address] [place] [address], [address], [facility] [employer] 09/21/2024 15:06:08 09/28/2024 text/html Ear Pain Brief HPIReported by PatientHPIFor location, patient reportspain radiates to neckbut reportsleft. For severity, patient reportsinterferes with ability to sleepbut reportsno fever,able to perform daily activities,getting worse, andmild pain. For context, patient reportsrecent ear infectionbut reportsno recent uri,no recent trauma,no recent swimming,no immunocompromise,no dental problems,no recent airplane travel,no scuba diving, andnon-smoker. For associated symptoms, patient reportssense of fullness/pressure,decr eased hearing, andmuffled hearingbut reportsno vertigo,no jaw popping or clicking,no temporomandibular joint disease,no discharge from ear,no nasal congestion,no nasal discharge,no hearing loss,no sore throat,no dental pain,no jaw pain, andno tinnitus. For onset/timing, patient reportsrecurrent episode,intermittent pain, andgradual onset. For quality, patient reportsno itching,no discharge from the ears, andno burning. For alleviating factors, patient reportsoral antibiotics.ROS as noted in the HPI Completed a course of Augmentin approximately 1 month ago for otitis media. She states at times both ears are intermittently painful, and the left feels full.Follow up 09/28/24: Has been taking the doxy and feels only minimal improvement in left ear pain and fullness. Is using flonase. Tomeka Hamm, LARRY [address], [place], [address], [facility] [employer] 09/30/2024 15:50:22 05/22/2025 text/html Medicare Annual Wellness VisitReported by PatientSocial/Behavior al HistoryFor diet and nutrition, patient reportshealthy diet,discussed vitamin and supplement use, anddiscussed maintaining calcium balance. For fracture risk, patient reportsno history of fractures,no recent explained fracture, andno sudden unexplained fractures. For physical activity, patient reportsexercises on a regular basis,good physical condition, anddiscussed exercise habits.Mental Status:For depression risk, patient reportssleep disturbances or insomniaandloss of energybut reportsnever feels sad, empty, or tearful,no loss of interest in activities,no significant changes in weight,no agitation,no feelings of worthlessness or guilt,no thoughts of suicide,no history of depression, andno history of mood disorders. For orientation, patient reportsno disorientation to time,no disorientation to date, andno disorientation to place. For concentration and memory, patient reportsno decreased concentrating ability,no memory lapses or loss, anddoes not forget words. For speech/motor difficulties, patient reportsno speech difficulties,no difficulty expressing formulated concepts,no difficulty with fine manipulative tasks,no difficulty writing/copying,no slowed reaction time, anddoes not knock things over when trying to pick them up.Functional AbilityFor hearing, patient reportsno loss of hearing. For vision, patient reportsno vision problems. For activities of daily living, patient reportsable to bathe with limited or no assistance,able to contol urination and bowels,able to dress with limited or no assistance,able to feed self with limited or no assistance,able to get out of chair or bed with limited or no assistance,able to groom with limited or no assistance, andable to toilet with limited or no assistance. For instrumental activities of daily living, patient reportsable to do house work with limited or no assistance,able to grocery shop with limited or no assistance,able to manage medications with limited or no assistance,able to manage money with limited or no assistance,able to prepare meals with limited or no assistance, andable to use the phone with limited or no assistance. For falls risk assessment, patient reportsno frequent falls while walking,no fall in the past year,no fall since last visit, andno dizziness/vertigo. For home safety, patient reportsno unsafe justin hazzards,no unsafe stairs,no unsafe gas appliances,working smoke/co detectors,wears protective head gear for biking/high velocity,use of seatbelts,practicing 'safer sex',no vision or hearing loss while driving,no fire arms,has hand bars in the bathroom/shower, andgood lighting in the home.ROS as noted in the HPI The patient's primary complaint is constipation. She has been seeing a GI specialist who prescribed Konsyl after colonoscopy in [facility] 2024, which has had variable effectiveness. Recently, she was also started on Metamucil by a GI PA, which has helped. About 5 weeks ago, she experienced significant discomfort from hemorrhoids for 4 weeks following straining. Currently, she has bowel movements every third day, with varying consistency. She admits to probably not drinking enough fluids but believes her fiber intake is adequate. Walking helps alleviate her discomfort. She previously tried Linzess but experienced diarrhea as a side effect.Ms. Prasad also reports increased issues with her neck. She describes tightness across her shoulders and into her neck, giving her the sensation of carrying her head heavily. This discomfort is cyclical and has been ongoing for a long time. She gets monthly massages, which provide temporary relief for about 10-14 days. She performs exercises to maintain range of motion. The patient recalls being told she had spinal stenosis on a previous neck X-ray but denies any current neurological symptoms.Regarding her sleep, Ms. Prasad reports that her insomnia is mostly well-controlled with trazodone and hydroxyzine, though she is currently experiencing a cycle where it takes her longer to fall asleep. Once asleep, she reports sleeping well, with her best sleep occurring between 5 AM and 10 AM.The patient continues to take her prescribed medications, including a blood pressure medication, levothyroxine, tamoxifen, and Crestor. She is adherent to her medication regimen, taking levothyroxine in the morning on an empty stomach. She reports no issues with dizziness, headaches, or ear problems. Ms. Prasad is scheduled for follow-up appointments with her oncologist in November and breast surgeon, and is due for a mammogram in June. DEXA and vaccinations are UTD. Tomeka Hamm APRN [address], [place], [address], [facility] [employer] 05/22/2025 15:47:57 08/14/2025 text/html ROS as noted in the [...] year with no real sx improvement. Tomeka Hamm, COLD PRESS LOADER [address], [place], [address], [place] [facility] [employer] 08/14/2025 16:30:28 OBGyn Episode No OBEpisode recorded.
--- OUTSIDE RECORDS SUMMARY | 2025-09-04 08:12 | XMS_ITS | Encounter Summary ---
Author Organization [facility] yste Address [address] [place] [address] Care Team Providers Care Hydraulic Oil Tool Operator Name Role Phone Tomeka Hamm LARRY Primary Care Provider [phone] Encounter Details Date Type Department Care Team (Late st Contact Info) Description 03/25/2021 Telephone [facility] [address] [place] [id number] Evy Martinez RegSched Rep Social History Tobacco [...] Description 11/20/2025 11:00 AM EDT Office Visit [facility] HEM[facility] & [facility]OGY [address] [facility] [address] [place] [id number] Urszula Quiros MD [address] [facility] [address] [place] [id number] 07/10/2026 10:30 AM EST Office Visit [facility] GENERAL SURGERY [address] [facility] [address] [place] [phone] Zack Kong MD [address] [facility] [address] [place], [place] [id number] documented as of this encounter Visit Diagnoses Not on filedocumented in this encounter Care Teams Hydraulic Oil Tool Operator Relationship Specialty Start Date End Date Tomeka Hamm APRN [address] [place] [id number] PCP - General Nurse Practitioner 06/05/24 documented as of this encounter
--- NOTE | 2025-09-04 08:13 | CT_ITS ---
FINAL REPORT TECHNIQUE: Pre- and postcontrast images of the abdomen were performed by computed tomography. Reconstructed images were obtained and reviewed. This study was performed with techniques to keep radiation doses as low as reasonably achievable, (ALARA). Individualized dose reduction techniques using automated exposure control or adjustment of mA and/or kV according to the patient's size were employed. CLINICAL HISTORY: ABD PAIN FINDINGS: The lung bases are clear. There is fatty infiltration of the liver. The gallbladder is present. The spleen, pancreas, and adrenals are unremarkable. There is a hypodense lesion in the upper pole of the left kidney, likely a cyst. There is no lymphadenopathy or free fluid. No bowel obstruction is identified. The appendix is not visualized but the pelvis was not imaged. There is a fat-containing umbilical hernia. IMPRESSION: Fatty liver. Reviewed, Interpreted and Dictated by Deysi Hannon MD Transcribed by Fabienne Gutierrez Authenticated and [facility]
[2025-09-04 08:29] LABS: Blood Urea Nitrogen 16 mg/dl (7-17); Creatinine,Serum 1.00 mg/dl (0.52-1.04); Estimated Glomerular Filt Rate 55 ml/min (>60); GFR (African American) 67 ML/MIN (>60)
[2025-09-04] MEDS: SODIUM CHLORIDE 0.9% 10ML SYR (RAD ONLY) 10 ML IV (08:59)
[2025-09-04] MEDS: IOPAMIDOL-370 (76%);100ML BOTTLE 75 ML IV (08:59)
== END 2025-09-04 23:59 | disposition home or self-care (01) ==
LOC: RAD 08:10
PROVIDERS: PCP Nurse Practitioner Family; Visit Provider Nurse Practitioner Family
DX: K76.0 Fatty (change of) liver, not elsewhere classified (principal)
CPT/HCPCS: 36415; 74170; 82565; 84520; Q9967